=== PATIENT | female | born 1950 | race Caucasian/White ===

== ENCOUNTER 2020-10-29 10:01 | Outpatient (REF) | payer MEDICARE, SELFPAY ==
[2020-10-29 12:01] LABS: Anion Gap 11 (12-20); Blood Urea Nitrogen 21 mg/dL (9-16); C Reactive Protein 0.23 mg/dL (< or = 0.50); Calcium 8.4 mg/dL (8.4-10.2); Carbon Dioxide 31 mmol/L (22-29); Chloride 103 mmol/L (96-108); Estimated Glomerular Filt Rate 57; Glucose Random 76 mg/dL (60-115); Magnesium 1.9 mg/dL (1.6-2.6); Potassium 4.4 mmol/l (3.3-5.1); Sodium 141 mmol/L (135-145)
[2020-10-29 12:24] LABS: Thyroid Stimulating Hormone 0.48 uIU/mL (0.32-4.0)
== END 2020-10-29 10:02 | disposition home or self-care (01) ==
LOC: HO.HMGCLDS 10:01
PROVIDERS: PCP Internal Medicine; Visit Provider Internal Medicine
DX: I12.9 Hypertensive chronic kidney disease with stage 1 through stage 4 chronic kidney disease, or unspecified chronic kidney disease (principal); N18.9 Chronic kidney disease, unspecified; R00.2 Palpitations; E03.9 Hypothyroidism, unspecified; R60.9 Edema, unspecified
CPT/HCPCS: 80048; 83735; 84439; 84443; 86140

== ENCOUNTER → 2020-12-03 12:19 | Outpatient (BNVA) | payer MEDICARE, SELFPAY | PROVIDERS: Visit Provider Internal Medicine Cardiovascular Disease | DX: I49.3 Ventricular premature depolarization (principal); I10 Essential (primary) hypertension | CPT/HCPCS: 93005; 99212 ==

== ENCOUNTER 2021-03-18 09:20 | Outpatient (REF) | payer MEDICARE, SELFPAY ==
--- NOTE | ~2021-03-18 | MM_ITS ---
EXAMINATION: MM SCREENING DIGITAL BREAST TOMOSYNTHESIS, BILATERAL CLINICAL INFORMATION: Screening. Prior history of left stereotactic biopsy with radial sclerosing lesion and intraductal papillomatosis for which open surgical biopsy was performed in 2018. COMPARISON: Mammography: 01/17/2020 and studies dating back to 11/03/2012 TECHNIQUE: Digital breast tomosynthesis is performed in both the craniocaudal and mediolateral oblique views along with computer-aided detection (CAD). Synthesized 2-D images are generated from the tomosynthesis. FINDINGS: There are scattered areas of fibroglandular density (ACR BI-RADS breast composition Category b). There is postsurgical change again seen within the left breast. There is a region of architectural distortion seen about the anterior upper outer aspect of the right breast for which spot compression views and ultrasound is recommended. MM/MM tomosynthesis screening BI IMPRESSION: Region of architectural distortion right breast for further evaluation, as described. ASSESSMENT: BI-RADS 0: Incomplete - Need Additional Imaging Evaluation. RECOMMENDATION: 1. Additional views of the right breast. 2. Targeted ultrasound if warranted after review of the additional views. 3. Radiology department staff will contact the patient for additional imaging.
== END 2021-03-18 09:21 | disposition home or self-care (01) ==
LOC: HO.MAMMO 09:20
PROVIDERS: Visit Provider Internal Medicine
DX: Z12.31 Encounter for screening mammogram for malignant neoplasm of breast (principal)
CPT/HCPCS: 77063; 77067

== ENCOUNTER 2021-03-24 08:38 | Outpatient (REF) | payer MEDICARE, SELFPAY | END 2021-03-24 08:39 | disposition home or self-care (01) | LOC: HO.MAMMO 08:38 | PROVIDERS: Visit Provider Internal Medicine | DX: Z13.89 Encounter for screening for other disorder (principal) ==

== ENCOUNTER 2021-03-30 08:13 | Outpatient (REF) | payer MEDICARE, SELFPAY ==
--- NOTE | ~2021-03-30 | MM_ITS ---
EXAMINATION: MM DIAGNOSTIC DIGITAL BREAST TOMOSYNTHESIS, RIGHT US DIAGNOSTIC ULTRASOUND BREAST, RIGHT CLINICAL INFORMATION: Recall from screening for vague region architectural changes upper outer quadrant right breast. Prior history contralateral left breast radial sclerosing lesion with intraductal papillomatosis on stereotactic biopsy 03/16/2018, and subsequent excisional biopsy 04/16/2018. COMPARISON: Mammography: 03/18/2021, 01/17/2020, 01/12/2019, 01/06/2018, 12/28/2016, 12/26/2015 TECHNIQUE: Digital breast tomosynthesis is performed. 2D images are generated from the tomosynthesis. The following views are obtained: 3-D spot CC, 3-D rolled CC x2, 3-D spot MLO, 3-D spot ML. Ultrasound right breast is targeted to the outer quadrant 7:00 through 12:00 position. Grayscale imaging and color Doppler are performed without and with harmonics. FINDINGS: Mammography: There are scattered areas of fibroglandular density (ACR BI-RADS breast composition Category b). The additional views show subtle regional architectural changes in the upper outer right breast without definite focality. There is no three-dimensional spiculated mass or focal developing density. Smooth nodule is present mid upper outer quadrant under 1 cm. Ultrasound: Ultrasound demonstrates scattered nonfocal shadowing in the outer breast 8:00 through 10:00 position anterior to mid depth. There is no focal three-dimensional shadowing or focal three-dimensional architectural changes. A small complicated cyst likely apocrine metaplasia is present corresponding to the nodule on mammography 11:00 position 3 cm from nipple measuring approximately 6 x 4 mm. There is some geographic internal echogenicity without associated color flow. There is increased through-transmission of sound. Management: Results are discussed with the patient at time of visit. There is no prior history right breast surgery or significant remote trauma right breast. Given the history contralateral radial sclerosing lesion tissue sampling is recommended to provide additional information and confirm benignity. This would be best performed under stereotactic sampling. Patient is in agreement. Results and recommendation called to medical office assistant instructor ([place]) for Dr. Bowens on 03/30/2021. MM/MM tomosynthesis added views R IMPRESSION: Subtle regional architectural changes upper outer right breast without definite focality on additional views. Scattered nonfocal shadowing on targeted ultrasound. ASSESSMENT: BI-RADS 4: Suspicious RECOMMENDATION: Stereotactic biopsy upper outer right breast. This patient's information was entered into a reminder system with a target due date for their next mammogram.
== END 2021-03-30 08:14 | disposition home or self-care (01) ==
LOC: HO.MAMMO 08:13
PROVIDERS: Visit Provider Internal Medicine
DX: R92.8 Other abnormal and inconclusive findings on diagnostic imaging of breast (principal)
CPT/HCPCS: 76642; 77061; 77065

== ENCOUNTER → 2021-04-03 08:14 | Outpatient (BNVA) | payer MEDICARE, SELFPAY | PROVIDERS: PCP Internal Medicine; Referring Provider Internal Medicine; Visit Provider Surgery | DX: R92.8 Other abnormal and inconclusive findings on diagnostic imaging of breast (principal) | CPT/HCPCS: 99202 ==

== ENCOUNTER 2021-04-06 09:40 | Outpatient (REF) | payer MEDICARE, SELFPAY ==
--- NOTE | ~2021-04-06 | MM_ITS ---
EXAMINATION: STEREOTACTIC TOMOSYNTHESIS-GUIDED VACUUM-ASSISTED BREAST BIOPSY, RIGHT SPECIMEN RADIOGRAPH, RIGHT POST PROCEDURE DIGITAL MAMMOGRAM, RIGHT CLINICAL INFORMATION: Subtle regional architectural changes upper outer right breast without definite focality. Scattered nonfocal shadowing on targeted ultrasound. Prior history contralateral eft breast radial sclerosing lesion with intraductal papillomatosis on stereotactic biopsy 03/16/2018, and subsequent excisional biopsy 04/16/2018. COMPARISON: Mammography 01/12/2019, 01/17/2020, 03/18/2021, 03/30/2021, right breast ultrasound 03/30/2021. TECHNIQUE/PROCEDURE: Informed consent was obtained from the patient after discussion of the benefits, risks, and alternatives to biopsy today. Patient appeared to understand. Gave opportunity for questions. Patient signed consent form. BIOPSY TABLE: [facility] Prone Biopsy System. LESION: Subtle regional architectural changes upper outer right breast. LOCAL ANESTHESIA: 10 mL 1% lidocaine; 10 mL 1% lidocaine with epinephrine. DERMATOTOMY: Single skin jcaob dermatotomy performed. NEEDLE: [employer] Eviva 9-gauge vacuum assisted core biopsy device. APPROACH: lateral medial. TARGETING: Digital breast tomosynthesis used for targeting. CORES: 12. CLIP: [employer] Buckle-shaped marker. SPECIMEN RADIOGRAPH: Specimen radiograph is taken in separate room using digital mammography. There are scattered fibroglandular densities in the cores as expected. POST PROCEDURE UNILATERAL DIGITAL MAMMOGRAM: The post biopsy mammogram is performed in separate room using separate digital mammography equipment from the biopsy procedure. CC and ML views are obtained. There are scattered areas of fibroglandular density (breast composition category: b). Breast tissue composition borders on heterogeneously dense in the upper outer quadrant. The biopsy clip marker is deployed in the vicinity of the regional architectural changes. No gross hematoma. The patient tolerated the procedure well. No immediate complications. Home instructions reviewed with the patient. Final pathology results are pending. MM/MM stereotactic biopsy RT IMPRESSION: 1. Digital tomosynthesis-guided core biopsy right breast with clip placement. 2. Specimen radiograph taken and post procedure mammogram. There is satisfactory positioning of the biopsy clip. 3. Final pathology results pending. An addendum report will be issued.
== END 2021-04-06 09:41 | disposition home or self-care (01) ==
LOC: HO.MAMMO 09:40
PROVIDERS: PCP Internal Medicine; Visit Provider Surgery
DX: R92.8 Other abnormal and inconclusive findings on diagnostic imaging of breast (principal)
CPT/HCPCS: 19081; 88305; 88341; 88342; 88360; A4648

== ENCOUNTER → 2021-04-09 11:00 | Outpatient (BNVA) | payer MEDICARE, SELFPAY | PROVIDERS: PCP Internal Medicine; Referring Provider Internal Medicine; Visit Provider Surgery | DX: D05.11 Intraductal carcinoma in situ of right breast (principal) | CPT/HCPCS: 99212 ==

== ENCOUNTER 2021-04-15 13:51 | Outpatient (REF) | payer MEDICARE, SELFPAY ==
--- NOTE | ~2021-04-15 | MR_ITS ---
EXAMINATION: BILATERAL BREAST MRI WITH AND WITHOUT CONTRAST CLINICAL INFORMATION: 70-year-old with new diagnosis of ductal carcinoma in situ right breast COMPARISON: None TECHNIQUE: Localizing images, axial T2 fat-saturated and bilateral axial T1 images were obtained. The patient was apparently an severe arm and shoulder pain and could not tolerate additional imaging at that time. No intravenous contrast was injected. The patient will need to be rescheduled with sedation to complete the examination. This was relayed to SANDIP [place] for Dr. Root by Dr. Alonzo at 11:48 AM on 04/16/2021.
[2021-04-15 14:59] LABS: Blood Urea Nitrogen 14 mg/dL (9-16); Estimated Glomerular Filt Rate 49
== END 2021-04-15 13:52 | disposition home or self-care (01) ==
LOC: HO.MRI 13:51
PROVIDERS: PCP Internal Medicine; Visit Provider Surgery
DX: D05.11 Intraductal carcinoma in situ of right breast (principal)
CPT/HCPCS: 36415; 70544; 77047; 77049; 82565; 84520

== ENCOUNTER → 2021-05-26 10:25 | Outpatient (BNVA) | payer MEDICARE, SELFPAY | PROVIDERS: PCP Internal Medicine; Referring Provider Internal Medicine; Visit Provider Surgery | DX: D05.11 Intraductal carcinoma in situ of right breast (principal) | CPT/HCPCS: 99212 ==

== ENCOUNTER 2021-06-17 06:58 | Outpatient (REF) | payer MEDICARE, SELFPAY ==
[2021-06-17 11:10] LABS: MANUAL DIFF FLAG NO
[2021-06-17 11:22] LABS: Basophils Absolute Auto 0.1 X10*3/uL (0.0-0.2); Basophils Percent Auto 0.9 % (0-2); Eosinophils Absolute Auto 0.3 X10*3/uL (0.0-0.4); Eosinophils Percent Auto 5.7 % (0-4); Hematocrit 40.9 % (37-47); Hemoglobin 13.1 g/dl (12.0-16.0); Imm Gran Abs Auto 0.01 X10*3/uL (0.00-0.03); Imm Gran Pct Auto 0.2 % (0.0-0.4); Lymphocytes Absolute Auto 1.9 X10*3/uL (1.2-4.9); Lymphocytes Percent Auto 35.7 % (20-40); Mean Corpuscular Hemoglobin 32.1 pg (27.0-33.0); Mean Corpuscular Volume 100.2 fL (80-98); Mean Platelet Volume 11.1 fL (9.4-12.3); Monocytes Absolute Auto 0.4 X10*3/uL (0.1-1.2); Neutrophils Absolute Auto 2.7 X10*3/uL (2.0-8.3); Neutrophils Percent Auto 50.5 % (45-73); Platelet Count 264 X10*3/uL (160-400); Red Blood Count 4.08 X10*6/uL (4.20-5.50); White Blood Count 5.4 X10*3/uL (4.8-10.8)
[2021-06-17 11:44] LABS: Alanine Aminotransferase 12 U/L (0-31); Alkaline Phosphatase 56 U/L (39-117); Anion Gap 11 (12-20); Aspartate Amino Transferase 18 U/L (5-31); Bilirubin Total 0.9 mg/dL (0.0-1.0); Blood Urea Nitrogen 15 mg/dL (9-16); Carbon Dioxide 30 mmol/L (22-29); Chloride 104 mmol/L (96-108); Cholesterol 132 mg/dL; Estimated Glomerular Filt Rate 48; Glucose Fasting 81 mg/dL (60-99); HDL Cholesterol 43 mg/dL; LDL Cholesterol Calculated 72 mg/dl; Potassium 4.2 mmol/L (3.3-5.1); Sodium 141 mmol/L (135-145); Total Protein 7.2 g/dL (6.5-8.0); Triglycerides 89 mg/dL
[2021-06-17 11:48] LABS: Thyroid Stimulating Hormone 4.23 uIU/mL (0.32-4.0)
== END 2021-06-17 06:59 | disposition home or self-care (01) ==
LOC: HO.HMGCLDS 06:58
PROVIDERS: PCP Internal Medicine; Visit Provider Internal Medicine
DX: Z01.810 Encounter for preprocedural cardiovascular examination (principal); I10 Essential (primary) hypertension; K21.9 Gastro-esophageal reflux disease without esophagitis; E03.9 Hypothyroidism, unspecified; E78.00 Pure hypercholesterolemia, unspecified; I49.3 Ventricular premature depolarization
CPT/HCPCS: 36415; 80053; 80061; 84439; 84443; 85025; 93005; 99212

== ENCOUNTER → 2021-07-15 12:39 | Outpatient (BNVA) | payer MEDICARE, SELFPAY | PROVIDERS: Visit Provider Advanced Practice Midwife ==

== ENCOUNTER 2021-09-30 14:09 | Outpatient (REF) | payer MEDICARE, SELFPAY ==
[2021-09-30 14:54] LABS: Influenza A PCR NEGATIVE (Negative); Influenza B PCR NEGATIVE (Negative); Resp Syncy Virus RNA Qual PCR NEGATIVE (Negative); SARS COV2 PCR INHOUSE NEGATIVE (Negative)
== END 2021-09-30 14:10 | disposition home or self-care (01) ==
LOC: HO.LNP 14:09
PROVIDERS: Visit Provider Internal Medicine
DX: Z20.822 Contact with and (suspected) exposure to COVID-19 (principal); R50.9 Fever, unspecified
CPT/HCPCS: 0241U

== ENCOUNTER → 2021-10-07 13:51 | Outpatient (BNVA) | payer MEDICARE, SELFPAY | PROVIDERS: PCP Internal Medicine; Visit Provider Internal Medicine Cardiovascular Disease | DX: I49.3 Ventricular premature depolarization (principal); I10 Essential (primary) hypertension; E78.00 Pure hypercholesterolemia, unspecified; E89.0 Postprocedural hypothyroidism; Z87.891 Personal history of nicotine dependence; Z90.13 Acquired absence of bilateral breasts and nipples; Z42.1 Encounter for breast reconstruction following mastectomy; Z88.1 Allergy status to other antibiotic agents; Z88.0 Allergy status to penicillin; Z79.899 Other long term (current) drug therapy | CPT/HCPCS: 99212 ==

== ENCOUNTER 2022-01-05 10:39 | Outpatient (REF) | payer MEDICARE, SELFPAY ==
[2022-01-05 13:59] LABS: MANUAL DIFF FLAG NO
[2022-01-05 14:06] LABS: Basophils Absolute Auto 0.1 X10*3/uL (0.0-0.2); Basophils Percent Auto 0.9 % (0-2); Eosinophils Absolute Auto 0.2 X10*3/uL (0.0-0.4); Eosinophils Percent Auto 3.4 % (0-4); Hematocrit 41.2 % (37.0-47.0); Hemoglobin 13.2 g/dl (12.0-16.0); Imm Gran Abs Auto 0.01 X10*3/uL (0.00-0.03); Imm Gran Pct Auto 0.2 % (0.0-0.4); Lymphocytes Absolute Auto 2.1 X10*3/uL (1.2-4.9); Lymphocytes Percent Auto 38.8 % (20-40); Mean Corpuscular Hemoglobin 31.1 pg (27.0-33.0); Mean Corpuscular Volume 96.9 fL (80.0-98.0); Mean Platelet Volume 11.5 fL (9.4-12.3); Monocytes Absolute Auto 0.5 X10*3/uL (0.1-1.2); Monocytes Percent Auto 10.1 % (2-11); Neutrophils Absolute Auto 2.5 x10*3/uL (2.0-8.3); Neutrophils Percent Auto 46.6 % (45-73); Platelet Count 306 X10*3/uL (160-400); Red Blood Count 4.25 X10*6/uL (4.20-5.50); Red Cell Distribution Width 13.2 % (11.0-16.0); White Blood Count 5.3 X10*3/uL (4.8-10.8)
[2022-01-05 14:23] LABS: Alanine Aminotransferase 9 U/L (0-31); Alkaline Phosphatase 68 U/L (39-117); Anion Gap 10 (12-20); Aspartate Amino Transferase 18 U/L (5-31); Bilirubin Total 0.5 mg/dL (0.0-1.0); Blood Urea Nitrogen 18 mg/dL (9-16); Calcium 9.5 mg/dL (8.4-10.2); Carbon Dioxide 33 mmol/L (22-29); Chloride 101 mmol/L (96-108); Estimated Glomerular Filt Rate 49; Glucose Random 67 mg/dL (60-115); Potassium 4.5 mmol/L (3.3-5.1); Sodium 139 mmol/L (135-145); Total Protein 7.5 g/dL (6.5-8.0)
[2022-01-05 14:45] LABS: Free T4 (Free Thyroxine) 1.23 ng/dL (0.71-1.85); Thyroid Stimulating Hormone 0.18 uIU/mL (0.32-4.0)
== END 2022-01-05 10:40 | disposition home or self-care (01) ==
LOC: HO.HMGCLDS 10:39
PROVIDERS: PCP Internal Medicine; Visit Provider Internal Medicine
DX: I12.9 Hypertensive chronic kidney disease with stage 1 through stage 4 chronic kidney disease, or unspecified chronic kidney disease (principal); N18.9 Chronic kidney disease, unspecified; E03.9 Hypothyroidism, unspecified; K21.9 Gastro-esophageal reflux disease without esophagitis
CPT/HCPCS: 36415; 80053; 84439; 84443; 85025

== ENCOUNTER 2022-03-02 15:39 | Outpatient (REF) | payer MEDICARE, SELFPAY ==
[2022-03-02 16:25] LABS: Anion Gap 12 (12-20); Blood Urea Nitrogen 15 mg/dL (9-16); C Reactive Protein 1.29 mg/dL (< or = 0.50); Calcium 9.1 mg/dL (8.4-10.2); Carbon Dioxide 28 mmol/L (22-29); Chloride 105 mmol/L (96-108); Estimated Glomerular Filt Rate 53; Glucose Random 84 mg/dL (60-115); Potassium 4.8 mmol/L (3.3-5.1); Sodium 140 mmol/L (135-145); Uric Acid 4.4 mg/dL (2.4-5.7)
[2022-03-02 16:43] LABS: Erythrocyte Sedimentation Rate 19 MM/HR (0-20)
== END 2022-03-02 15:40 | disposition home or self-care (01) ==
LOC: HO.LAB 15:39
PROVIDERS: PCP Internal Medicine; Visit Provider Internal Medicine
DX: M25.532 Pain in left wrist (principal)
CPT/HCPCS: 36415; 80048; 84550; 85652; 86140

== ENCOUNTER 2022-07-22 12:02 | Outpatient (REF) | payer MEDICARE, SELFPAY ==
[2022-07-22 13:49] LABS: MANUAL DIFF FLAG NO
[2022-07-22 13:53] LABS: Basophils Absolute Auto 0.1 X10*3/uL (0.0-0.2); Basophils Percent Auto 1.2 % (0-2); Eosinophils Absolute Auto 0.2 X10*3/uL (0.0-0.4); Eosinophils Percent Auto 3.9 % (0-4); Hematocrit 41.3 % (37.0-47.0); Hemoglobin 13.7 g/dl (12.0-16.0); Imm Gran Abs Auto 0.01 X10*3/uL (0.00-0.03); Imm Gran Pct Auto 0.2 % (0.0-0.4); Lymphocytes Absolute Auto 2.1 X10*3/uL (1.2-4.9); Lymphocytes Percent Auto 34.2 % (20-40); Mean Corpuscular HGB Conc 33.2 g/dl (31.0-35.0); Mean Corpuscular Hemoglobin 32.4 pg (27.0-33.0); Mean Corpuscular Volume 97.6 fL (80.0-98.0); Mean Platelet Volume 10.8 fL (9.4-12.3); Monocytes Absolute Auto 0.5 X10*3/uL (0.1-1.2); Monocytes Percent Auto 7.6 % (2-11); Neutrophils Absolute Auto 3.2 x10*3/uL (2.0-8.3); Neutrophils Percent Auto 52.9 % (45-73); Platelet Count 333 X10*3/uL (160-400); Red Blood Count 4.23 X10*6/uL (4.20-5.50); Red Cell Distribution Width 12.9 % (11.0-16.0); White Blood Count 6.1 X10*3/uL (4.8-10.8)
[2022-07-22 14:15] LABS: Anion Gap 13 (12-20); Blood Urea Nitrogen 13 mg/dL (9-16); Calcium 9.1 mg/dL (8.4-10.2); Carbon Dioxide 31 mmol/L (22-29); Chloride 99 mmol/L (96-108); Estimated Glomerular Filt Rate 53; Glucose Random 85 mg/dL (60-115); Potassium 4.4 mmol/L (3.3-5.1); Sodium 139 mmol/L (135-145)
[2022-07-22 14:41] LABS: Free T4 (Free Thyroxine) 1.38 ng/dL (0.71-1.85); Thyroid Stimulating Hormone 0.15 uIU/mL (0.32-4.0)
== END 2022-07-22 12:03 | disposition home or self-care (01) ==
LOC: HO.10HDL 12:02
PROVIDERS: Visit Provider Internal Medicine
DX: I10 Essential (primary) hypertension (principal); E03.9 Hypothyroidism, unspecified
CPT/HCPCS: 36415; 80048; 84439; 84443; 85025

== ENCOUNTER → 2022-10-13 13:26 | Outpatient (BNVA) | payer MEDICARE, SELFPAY | PROVIDERS: PCP Internal Medicine; Referring Provider Internal Medicine; Visit Provider Internal Medicine Cardiovascular Disease | DX: I49.3 Ventricular premature depolarization (principal); I10 Essential (primary) hypertension; K21.9 Gastro-esophageal reflux disease without esophagitis | CPT/HCPCS: 93005; 99212 ==

== ENCOUNTER 2022-12-24 08:19 | Outpatient (REF) | payer MEDICARE, SELFPAY ==
[2022-12-24 11:12] LABS: MANUAL DIFF FLAG NO
[2022-12-24 11:28] LABS: Basophils Absolute Auto 0.1 X10*3/uL (0.0-0.2); Basophils Percent Auto 0.9 % (0-2); Eosinophils Absolute Auto 0.3 X10*3/uL (0.0-0.4); Eosinophils Percent Auto 5.2 % (0-4); Hematocrit 42.5 % (37.0-47.0); Hemoglobin 13.7 g/dl (12.0-16.0); Imm Gran Abs Auto 0.01 X10*3/uL (0.00-0.03); Imm Gran Pct Auto 0.2 % (0.0-0.4); Lymphocytes Absolute Auto 1.9 X10*3/uL (1.2-4.9); Lymphocytes Percent Auto 33.3 % (20-40); Mean Corpuscular HGB Conc 32.2 g/dl (31.0-35.0); Mean Corpuscular Hemoglobin 31.4 pg (27.0-33.0); Mean Corpuscular Volume 97.3 fL (80.0-98.0); Mean Platelet Volume 10.8 fL (9.4-12.3); Monocytes Absolute Auto 0.4 X10*3/uL (0.1-1.2); Monocytes Percent Auto 6.6 % (2-11); Neutrophils Percent Auto 53.8 % (45-73); Platelet Count 327 X10*3/uL (160-400); Red Blood Count 4.37 X10*6/uL (4.20-5.50); Red Cell Distribution Width 12.8 % (11.0-16.0); White Blood Count 5.6 X10*3/uL (4.8-10.8)
[2022-12-24 11:54] LABS: Alanine Aminotransferase 14 U/L (0-31); Albumin Level 4.1 g/dL (3.5-5.0); Alkaline Phosphatase 49 U/L (39-117); Anion Gap 13 (12-20); Aspartate Amino Transferase 21 U/L (5-31); Blood Urea Nitrogen 16 mg/dL (9-16); Calcium 9.4 mg/dL (8.4-10.2); Carbon Dioxide 31 mmol/L (22-29); Chloride 100 mmol/L (96-108); Estimated Glomerular Filt Rate 49; Glucose Fasting 86 mg/dL (60-99); Potassium 3.9 mmol/L (3.3-5.1); Sodium 140 mmol/L (135-145); Total Protein 7.3 g/dL (6.5-8.0)
[2022-12-24 12:14] LABS: Free T4 (Free Thyroxine) 1.13 ng/dL (0.71-1.85); Thyroid Stimulating Hormone 0.64 uIU/mL (0.32-4.0)
== END 2022-12-24 08:20 | disposition home or self-care (01) ==
LOC: HO.HMGCLDS 08:19
PROVIDERS: Visit Provider Internal Medicine
DX: I10 Essential (primary) hypertension (principal); E03.9 Hypothyroidism, unspecified; E78.00 Pure hypercholesterolemia, unspecified
CPT/HCPCS: 36415; 80053; 84439; 84443; 85025

== ENCOUNTER 2023-01-14 10:30 | Outpatient (REF) | payer MEDICARE, SELFPAY ==
[2023-01-14 13:23] LABS: Appearance Urine Clear; Color Urine Yellow; Glucose Urine UA Negative (Negative); Leukocyte Esterase Urine Large (3+) (Negative); Nitrite Urine Negative (Negative); Specific Gravity - Urine 1.015 (1.005-1.025); UMIC TRIGGER UACC YES; Urine Blood Small (1+) (Negative); Urine Ketones Negative (Negative); Urine Protein Trace mg/dL (Neg-Trace)
[2023-01-14 13:33] LABS: Bacteria Urine 4+ (None Seen); Hyaline Casts Urine 0-2 /LPF (0-2); RBC Urine 0-2 /HPF (0-2); Squamous Epithelial Cell Urine 0-2 /HPF (0-2); UACC Culture Trigger YES; WBC Urine >50 /HPF (0-5)
== END 2023-01-14 10:31 | disposition home or self-care (01) ==
LOC: HO.10HDL 10:30
PROVIDERS: Visit Provider Internal Medicine
DX: R30.0 Dysuria (principal)
CPT/HCPCS: 81001; 87086; 87088; 87186

== ENCOUNTER 2023-04-22 10:09 | Outpatient (REF) | payer MEDICARE, SELFPAY ==
[2023-04-22 11:34] LABS: Anion Gap 14 (12-20); Blood Urea Nitrogen 23 mg/dL (9-16); Calcium 9.8 mg/dL (8.4-10.2); Carbon Dioxide 28 mmol/L (22-29); Chloride 106 mmol/L (96-108); Estimated Glomerular Filt Rate 53; Glucose Random 71 mg/dL (60-115); Potassium 4.6 mmol/L (3.3-5.1); Sodium 143 mmol/L (135-145)
[2023-04-22 11:59] LABS: Free T4 (Free Thyroxine) 1.21 ng/dL (0.71-1.85); Thyroid Stimulating Hormone 0.62 uIU/mL (0.32-4.0)
== END 2023-04-22 10:10 | disposition home or self-care (01) ==
LOC: HO.10HDL 10:09
PROVIDERS: Visit Provider Internal Medicine
DX: I12.9 Hypertensive chronic kidney disease with stage 1 through stage 4 chronic kidney disease, or unspecified chronic kidney disease (principal); N18.9 Chronic kidney disease, unspecified; E03.9 Hypothyroidism, unspecified
CPT/HCPCS: 36415; 80048; 84439; 84443

== ENCOUNTER 2023-07-21 09:47 | Outpatient (REF) | payer MEDICARE, SELFPAY ==
--- NOTE | ~2023-07-21 | XR_ITS ---
EXAMINATION: XR KNEE, LEFT CLINICAL INFORMATION: Pain. COMPARISON: None available. TECHNIQUE: AP, lateral, tunnel, and sunrise views of the left knee. FINDINGS: Bony mineralization is normal. There is moderate asymmetric narrowing of the lateral joint space compartment. The medial and patellofemoral joint space compartments are well-maintained. There is no significant varus or valgus configuration. There is no fracture, dislocation or significant joint effusion. No foreign body is seen. XR/XR knee LT 4V IMPRESSION: 1. 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 2. No fracture, dislocation or joint effusion is seen.
== END 2023-07-21 09:48 | disposition home or self-care (01) ==
LOC: HO.XRAY 09:47
PROVIDERS: PCP Internal Medicine; Visit Provider Internal Medicine
DX: M25.562 Pain in left knee (principal)
CPT/HCPCS: 73564

== ENCOUNTER 2023-08-09 07:33 | Outpatient (REF) | payer MEDICARE, SELFPAY ==
[2023-08-09 11:28] LABS: MANUAL DIFF FLAG NO
[2023-08-09 11:54] LABS: Basophils Absolute Auto 0.1 X10*3/uL (0.0-0.2); Basophils Percent Auto 1.1 % (0-2); Eosinophils Absolute Auto 0.3 X10*3/uL (0.0-0.4); Eosinophils Percent Auto 5.1 % (0-4); Hematocrit 42.7 % (37.0-47.0); Hemoglobin 13.9 g/dl (12.0-16.0); Imm Gran Abs Auto 0.01 X10*3/uL (0.00-0.03); Imm Gran Pct Auto 0.2 % (0.0-0.4); Lymphocytes Absolute Auto 1.6 X10*3/uL (1.2-4.9); Lymphocytes Percent Auto 29.2 % (20-40); Mean Corpuscular HGB Conc 32.6 g/dl (31.0-35.0); Mean Corpuscular Hemoglobin 32.3 pg (27.0-33.0); Mean Corpuscular Volume 99.1 fL (80.0-98.0); Mean Platelet Volume 10.9 fL (9.4-12.3); Monocytes Absolute Auto 0.4 X10*3/uL (0.1-1.2); Monocytes Percent Auto 6.7 % (2-11); Neutrophils Absolute Auto 3.1 x10*3/uL (2.0-8.3); Neutrophils Percent Auto 57.7 % (45-73); Platelet Count 333 X10*3/uL (160-400); Red Blood Count 4.31 X10*6/uL (4.20-5.50); Red Cell Distribution Width 12.7 % (11.0-16.0); White Blood Count 5.3 X10*3/uL (4.8-10.8)
[2023-08-09 12:16] LABS: Alanine Aminotransferase 10 U/L (0-31); Albumin Level 4.1 g/dL (3.5-5.0); Alkaline Phosphatase 53 U/L (39-117); Anion Gap 11 (12-20); Aspartate Amino Transferase 18 U/L (5-31); Bilirubin Total 0.6 mg/dL (0.0-1.0); Blood Urea Nitrogen 14 mg/dL (9-16); Calcium 9.2 mg/dL (8.4-10.2); Carbon Dioxide 30 mmol/L (22-29); Chloride 104 mmol/L (96-108); Cholesterol 153 mg/dL (<200); Estimated Glomerular Filt Rate 50; Glucose Fasting 86 mg/dL (60-99); HDL Cholesterol 43 mg/dL (>40); LDL Cholesterol Calculated 79 mg/dL (<100); Sodium 141 mmol/L (135-145); Total Protein 7.6 g/dL (6.5-8.0); Triglycerides 155 mg/dL (<150)
[2023-08-09 12:17] LABS: Free T4 (Free Thyroxine) 1.05 ng/dL (0.71-1.85); Thyroid Stimulating Hormone 3.05 uIU/mL (0.32-4.0)
== END 2023-08-09 07:34 | disposition home or self-care (01) ==
LOC: HO.HMGCLDS 07:33
PROVIDERS: PCP Internal Medicine; Visit Provider Internal Medicine
DX: I10 Essential (primary) hypertension (principal); E78.00 Pure hypercholesterolemia, unspecified; K21.9 Gastro-esophageal reflux disease without esophagitis; E03.9 Hypothyroidism, unspecified
CPT/HCPCS: 36415; 80053; 80061; 84439; 84443; 85025

== ENCOUNTER 2023-12-22 09:08 | Outpatient (AMB) | payer MEDICARE, SELFPAY ==
[2023-12-22 09:30] VITALS: BP 130/72; PULSE 53; BMI 30.3
--- NOTE | 2023-12-22 09:30 | MHC.OFFVIS ---
Intake Vital Signs 12/22/23 09:30 Height 5 ft 7 in Weight 193 lb 9.054 oz BMI 30.3 BP 130/72 Blood Pressure Location Lt brachial Position Sitting Pulse 53 Pulse Source Monitor Intake Visit Reasons: 1 year fu (KM) Allergies amoxicillin [AMOXICILLIN] Allergy (Unknown, Verified 12/22/23 09:32) ITCHING,RASH, rash, itching Medication List - Last Reconciled 12/22/23 by Sintia Tsang, HAND OUTSIDE CUTTER-C anastrozole 1 mg PO DAILY levothyroxine 125 mcg PO DAILY lisinopril 20 mg PO DAILY omeprazole 20 mg PO DAILY simvastatin 20 mg PO DAILY HPI 1 year fu (KM) HPI Details Kandis is a 73-year-old female past medical history of hypertension, hyperlipidemia, breast CA, heart palpitations, PVCs who presents for follow-up. Today she reports that overall she is been feeling well. She will feel an occasional blip in her chest. She has had no sustained, rapid or irregular heart rates. No presyncope, syncope, falls. No chest discomfort at rest or with activity. No shortness of breath, PND, orthopnea or edema. She reports routine walking for physical activity. Taking meds as directed. [facility] Medical History DCIS (ductal carcinoma in situ) Osteopenia Bronchitis GERD (gastroesophageal reflux disease) Thyroid cancer Hypercholesterolemia Hypertension PVC (premature ventricular contraction) Surgical History History of mastectomy H/O total thyroidectomy History of removal of cyst History of lumpectomy History of tonsillectomy History of cholecystectomy Family History Maternal Grandfather CVD (cardiovascular disease) Father Cancer Mother Cancer Parkinson disease Maternal Grandmother Gallbladder cancer Social History Alcohol intake: current Alcohol intake frequency: holidays/special occasions only Patient Tobacco Use Status: Former Tobacco user Quit Date: 2002 Years Smoked: 15+ Female Reproductive History Menstrual Age of Menarche: 13 Review of Systems Const All systems reviewed & are unremarkable except as noted in HPI and below ENT Denies dizziness Card Denies chest pain, Denies chest pain at rest, Denies chest pain with activity, Denies rapid heart rate, Denies pedal edema, Denies edema, Denies leg edema, Denies lightheadedness, Denies palpitations, Denies dyspnea, Denies dyspnea on exertion and Denies orthopnea Resp Denies cough, Denies dyspnea and Denies dyspnea on exertion GI Denies hematochezia and Denies change in stool character Musc Denies abnormal gait, Denies limited range of motion, Denies muscle cramps, Denies muscle weakness, Denies numbness, Denies radiating pain into limb, Denies stiffness and Denies tingling Neuro Denies abnormal gait, Denies dizziness, Denies numbness and Denies tingling Endo Denies palpitations Physical Exam Vital Signs: Last Vital Signs Pulse 53 12/22/23 09:30 BP 130/72 12/22/23 09:30 BMI result Body Mass Index 30.3 Const General: cooperative, healthy appearing, comfortable and no acute distress Orientation/consciousness: patient oriented x3 Neck Neck: Yes normal visual inspection and Yes no JVD Resp Effort & Inspection: normal respiratory effort Auscultation: clear to auscultation bilaterally, no crackles, no rales, no rhonchi and no wheezes Cardio Jugular venous distension: no JVD Rate: regular rate Rhythm: regular rhythm Heart sounds: S1 normal heart sound present, S2 normal heart sound present, no murmurs and no rubs Neuro General: patient oriented x3 Extrem General: Yes normal to inspection, No no pedal edema and No calf tenderness Psych Appearance: grossly normal Mental Status: mental status grossly normal Speech and movement: Normal speech and movement present Office Procedures EKG Details: Today, read by me, sinus bradycardia, rate 53, no acute ST or T-wave abnormalities, QTC 399 millisecond [id number], Complete Assessment & Plan Assessment & Plan (1) Palpitation: Code(s): R00.2 - Palpitations Plan: History of heart palpitations. Prior cardiac evaluation showed frequent PVCs which were managed conservatively. Echocardiogram done 05/13/2020 showed EF 60-65%, normal valves. Holter monitor done in 2019 showed frequent ventricular bigeminy. She reduced her caffeinated beverages, decreasing stress levels and walks routinely for exercise. At this point she generally feels well with only occasional brief palpitation. She has no lightheadedness, presyncope, syncope. EKG done today showing sinus bradycardia, no acute ST or T-wave abnormalities, no ectopy, rate 53. Recent labs reviewed, no anemia, normal potassium and TSH. She is not on any rate slowing agents. Her blood pressure is controlled. In the absence concerning symptoms no need for further testing at present. Emergency care if ever needed for symptoms. Cardiology follow-up in 1 year, sooner if needed. (2) PVC (premature ventricular contraction): Code(s): I49.3 - Ventricular premature depolarization Plan: As above (3) Hypertension: Code(s): I10 - Essential (primary) hypertension Qualifiers: Hypertension type: primary hypertension Qualified Code(s): I10 - Essential (primary) hypertension Plan: [place] blood pressure goal less than 130/85. Currently well controlled with lisinopril. Labs done 08/09/2023 shows creatinine 1.07. Continue lisinopril at 20 mg daily. Plan Time spent on chart review, documentation, interview and assessment Coding Level of Care Code Est Pt Level 3 (84211) Diagnoses Palpitation R00.2 PVC (premature ventricular contraction) I49.3 Primary hypertension I10 Hypertension type: primary hypertension CPT Codes EKG - CPT: 22844-[id number], Complete ([id number]) Time Spent (min) 22
== END 2023-12-22 10:07 | disposition home or self-care (01) ==
PROVIDERS: PCP Internal Medicine; Visit Provider Nurse Practitioner Family
DX: R00.2 Palpitations (principal); I49.3 Ventricular premature depolarization; I10 Essential (primary) hypertension
CPT/HCPCS: 93010; 99213

== ENCOUNTER → 2023-12-22 09:08 | Outpatient (BNVA) | payer MEDICARE, SELFPAY | PROVIDERS: PCP Internal Medicine; Visit Provider Nurse Practitioner Family | DX: R00.2 Palpitations (principal); I49.3 Ventricular premature depolarization; I10 Essential (primary) hypertension | CPT/HCPCS: 93005; 99212 ==

== ENCOUNTER 2024-01-20 10:37 | Outpatient (REF) | payer MEDICARE, SELFPAY ==
[2024-01-20 13:18] LABS: MANUAL DIFF FLAG NO
[2024-01-20 13:28] LABS: Basophils Absolute Auto 0.1 X10*3/uL (0.0-0.2); Basophils Percent Auto 0.9 % (0-2); Eosinophils Absolute Auto 0.2 X10*3/uL (0.0-0.4); Eosinophils Percent Auto 3.4 % (0-4); Hematocrit 40.8 % (37.0-47.0); Hemoglobin 13.4 g/dl (12.0-16.0); Imm Gran Abs Auto 0.01 X10*3/uL (0.00-0.03); Imm Gran Pct Auto 0.2 % (0.0-0.4); Lymphocytes Absolute Auto 1.7 X10*3/uL (1.2-4.9); Lymphocytes Percent Auto 30.3 % (20-40); Mean Corpuscular HGB Conc 32.8 g/dl (31.0-35.0); Mean Corpuscular Hemoglobin 31.9 pg (27.0-33.0); Mean Corpuscular Volume 97.1 fL (80.0-98.0); Mean Platelet Volume 10.4 fL (9.4-12.3); Monocytes Absolute Auto 0.5 X10*3/uL (0.1-1.2); Monocytes Percent Auto 8.5 % (2-11); Neutrophils Absolute Auto 3.1 x10*3/uL (2.0-8.3); Neutrophils Percent Auto 56.7 % (45-73); Platelet Count 287 X10*3/uL (160-400); Red Cell Distribution Width 12.6 % (11.0-16.0); White Blood Count 5.5 X10*3/uL (4.8-10.8)
[2024-01-20 14:20] LABS: Alanine Aminotransferase 10 U/L (0-31); Alkaline Phosphatase 50 U/L (39-117); Anion Gap 10 (12-20); Aspartate Amino Transferase 18 U/L (5-31); Bilirubin Total 0.5 mg/dL (0.0-1.0); Blood Urea Nitrogen 19 mg/dL (9-16); Calcium 8.7 mg/dL (8.4-10.2); Carbon Dioxide 30 mmol/L (22-29); Chloride 105 mmol/L (96-108); Estimated Glomerular Filt Rate 52; Free T4 (Free Thyroxine) 1.29 ng/dL (0.71-1.85); Glucose Random 89 mg/dL (60-115); Potassium 4.4 mmol/L (3.3-5.1); Sodium 141 mmol/L (135-145); Thyroid Stimulating Hormone 0.25 uIU/mL (0.32-4.0); Total Protein 7.4 g/dL (6.5-8.0)
== END 2024-01-20 10:38 | disposition home or self-care (01) ==
LOC: HO.10HDL 10:37
PROVIDERS: Visit Provider Internal Medicine
DX: I10 Essential (primary) hypertension (principal); E03.9 Hypothyroidism, unspecified; N18.9 Chronic kidney disease, unspecified; K21.9 Gastro-esophageal reflux disease without esophagitis
CPT/HCPCS: 36415; 80053; 84439; 84443; 85025

== ENCOUNTER 2024-08-14 09:51 | Outpatient (AMB) | payer MEDICARE, MEDICAID, SELFPAY ==
--- NOTE | 2024-08-14 09:53 | A.OFFVIS_ITS ---
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 She is doing well with no concerns. Attempting to eat a healthy diet with calcium and vitamin D and stays active with walking. Currently not sexually active. Denies any vaginal dryness or irritation. Bilateral mastectomy, seeing [facility]. Colonoscopy is 2020. [facility] Medical History (Updated 08/14/24 @ 10:37 by Hamida Head CNM) DCIS (ductal carcinoma in situ) Osteopenia Bronchitis GERD (gastroesophageal reflux disease) Thyroid cancer Hypercholesterolemia Hypertension PVC (premature ventricular contraction) Surgical History (Updated 08/14/24 @ 10:31 by Hamida Head CNM) History of mastectomy H/O total thyroidectomy History of removal of cyst History of lumpectomy History of tonsillectomy History of cholecystectomy Family History Maternal Grandfather CVD (cardiovascular disease) Father Cancer Mother Cancer Parkinson disease Maternal Grandmother Gallbladder cancer Social History Alcohol intake: current Alcohol intake frequency: holidays/special occasions only Patient Tobacco Use Status: Former Tobacco user Years Smoked: 15+ Female Reproductive History Menstrual Age of Menarche: 13 Total pregnancies: 3 Full term: 2 Number of Living Children: 2 Ab spontaneous: 1 Date of Mammogram: 03/30/21 (Birad 4) History of abnormal mammogram: Yes (bx ductal carcinoma in situ) Review of Systems Const All systems reviewed & are unremarkable except as noted in HPI and below Reports as per HPI Eyes Reports no additional complaints ENT Reports no additional complaints Card Reports no additional complaints Resp Reports no additional complaints GI Reports as per HPI and Reports no additional complaints Reports as per HPI Musc Reports no additional complaints Skin/Breast Reports as per HPI Neuro Reports no additional complaints Psych Reports no additional complaints Endo Reports no additional complaints Bib/Lymph Reports no additional complaints Aller/Immun Reports no additional complaints Physical Exam Vital Signs: Last Vital Signs BP 120/82 08/14/24 09:55 BMI result Body Mass Index 29.9 Const General: cooperative, healthy appearing, no acute distress, well developed and alert Orientation/consciousness: patient oriented x3 HEENT Head: Yes normal to inspection Eyes General: appearance normal, both eyes and all related structures Neck Neck: Yes normal visual inspection Thyroid: Thyroid normal Chest Other: Reconstructive breast scarring with expanders bilaterally Chest palpation & inspection: normal inspection of the chest and other (no puckering, dimpling, peau de orange, retraction, discharge, masses) Breast/axilla inspection: normal inspection of the breasts Breast/axilla palpation: normal palpation of the breasts Resp Effort & Inspection: normal respiratory effort GI Inspection: Yes normal to inspection Palpation (GI): Soft to palpation Rectal Exam - Female: deferred General: Yes bladder normal to palpation External Female Exam: normal external appearance and normal appearance of the urethra Speculum Exam - Vagina: normal appearance of the vagina, normal palpation, normal vaginal discharge and vagina atrophic Speculum Exam - Cervix: normal appearance of the cervix and normal palpation Bimanual exam- vagina & uterus: normal bimanual exam, normal palpation, uterine size normal, bladder normal to palpation, normal palpation and non-tender Bimanual Exam- Adnexa, other: no masses Skin General skin exam: no rashes or lesions noted Rashes: no rashes Neuro General: patient oriented x3 Cognition (Neuro): normal cognition Extrem General: Yes normal to inspection Psych Attitude: cooperative Thought process: Normal thought process present Assessment & Plan Assessment & Plan (1) Encounter for well woman exam with routine gynecological exam: Code(s): Z01.419 - Encounter for gynecological examination (general) (routine) without abnormal findings Category: Medical Plan Discussed: Current recommendations for pap smears per ASCCP guidelines. Breast awareness, periodic self breast exams and yearly mammogram. Maintain a healthy lifestyle, well balanced diet including Calcium 1,200 mg and Vitamin D 800 IU daily, and routine exercise. Contact the office with any postmenopausal bleeding. Patient verbalizes understanding and agrees to the plan of care. She was given opportunity to ask questions and all questions were answered to the best of my ability. Return to the office 1-2 year. This note is constructed using voice recognition software. While every effort has been made to ensure accuracy, continuous miner operator errors may have been included. RTO in 1 year for annual library consultant exam. Coding Level of Care Code Est Pt Prev Care >65y(98920) Diagnoses Encounter for well woman exam with routine gynecological exam Z01.419
[2024-08-14 09:55] VITALS: BP 120/82; BMI 29.9
== END 2024-08-14 10:53 | disposition home or self-care (01) ==
PROVIDERS: PCP Internal Medicine; Visit Provider Advanced Practice Midwife
DX: Z01.419 Encounter for gynecological examination (general) (routine) without abnormal findings (principal)
CPT/HCPCS: 99397

== ENCOUNTER → 2024-08-14 09:51 | Outpatient (BNVA) | payer MEDICARE, SELFPAY | PROVIDERS: PCP Internal Medicine; Visit Provider Advanced Practice Midwife ==

== ENCOUNTER 2024-10-09 10:00 | Outpatient (RCR) | payer MEDICARE, OTHER, SELFPAY | END 2024-10-17 08:28 | disposition home or self-care (01) | LOC: HO.PTCHIC 10:00 | PROVIDERS: PCP Internal Medicine; Visit Provider Internal Medicine | DX: M17.0 Bilateral primary osteoarthritis of knee (principal) | CPT/HCPCS: 97110; 97140; 97161 ==

== ENCOUNTER 2024-10-23 07:29 | Outpatient (REF) | payer MEDICARE, MEDICAID, SELFPAY ==
[2024-10-23 09:58] LABS: MANUAL DIFF FLAG NO
[2024-10-23 10:07] LABS: Basophils Absolute Auto 0.1 X10*3/uL (0.0-0.2); Basophils Percent Auto 1.3 % (0-2); Eosinophils Absolute Auto 0.2 X10*3/uL (0.0-0.4); Eosinophils Percent Auto 4.1 % (0-4); Hematocrit 41.3 % (37.0-47.0); Hemoglobin 13.5 g/dl (12.0-16.0); Imm Gran Abs Auto 0.01 X10*3/uL (0.00-0.03); Imm Gran Pct Auto 0.2 % (0.0-0.4); Lymphocytes Absolute Auto 1.6 X10*3/uL (1.2-4.9); Mean Corpuscular HGB Conc 32.7 g/dl (31.0-35.0); Mean Corpuscular Hemoglobin 32.2 pg (27.0-33.0); Mean Corpuscular Volume 98.6 fL (80.0-98.0); Mean Platelet Volume 10.9 fL (9.4-12.3); Monocytes Absolute Auto 0.4 X10*3/uL (0.1-1.2); Monocytes Percent Auto 7.7 % (2-11); Neutrophils Absolute Auto 2.5 x10*3/uL (2.0-8.3); Neutrophils Percent Auto 52.7 % (45-73); Platelet Count 297 X10*3/uL (160-400); Red Blood Count 4.19 X10*6/uL (4.20-5.50); Red Cell Distribution Width 12.8 % (11.0-16.0); White Blood Count 4.7 X10*3/uL (4.8-10.8)
[2024-10-23 10:26] LABS: Alanine Aminotransferase 18 U/L (0-31); Albumin Level 4.1 g/dL (3.5-5.0); Alkaline Phosphatase 48 U/L (39-117); Anion Gap 12 (12-20); Aspartate Amino Transferase 24 U/L (5-31); Bilirubin Total 0.7 mg/dL (0.0-1.0); Blood Urea Nitrogen 17 mg/dL (9-16); Calcium 9.1 mg/dL (8.4-10.2); Carbon Dioxide 30 mmol/L (22-29); Chloride 102 mmol/L (96-108); Cholesterol 142 mg/dL (<200); Estimated Glomerular Filt Rate 56; Glucose Fasting 87 mg/dL (60-99); HDL Cholesterol 43 mg/dL (>40); LDL Cholesterol Calculated 71 mg/dL (<100); Potassium 3.9 mmol/L (3.3-5.1); Sodium 140 mmol/L (135-145); Total Protein 7.4 g/dL (6.5-8.0); Triglycerides 142 mg/dL (<150)
[2024-10-23 10:47] LABS: Free T4 (Free Thyroxine) 1.32 ng/dL (0.71-1.85); Thyroid Stimulating Hormone 0.15 uIU/mL (0.32-4.0); Vitamin D 25-OH Total 103.5 ng/mL (>30)
== END 2024-10-23 07:30 | disposition home or self-care (01) ==
LOC: HO.HMGCLDS 07:29
PROVIDERS: PCP Internal Medicine; Visit Provider Internal Medicine
DX: I10 Essential (primary) hypertension (principal); E03.9 Hypothyroidism, unspecified; N18.9 Chronic kidney disease, unspecified; M81.0 Age-related osteoporosis without current pathological fracture
CPT/HCPCS: 36415; 80053; 80061; 82306; 84439; 84443; 85025

== ENCOUNTER 2025-02-22 09:19 | Outpatient (AMB) | payer MEDICARE, MEDICAID, SELFPAY ==
--- NOTE | 2025-02-22 09:40 | MHC.OFFVIS ---
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 She has background history of asymptomatic premature ventricular complexes. Her workup was normal in the past. She was seen for perioperative cardiovascular risk assessment for breast surgery for cancer. She is now status post bilateral mastectomy and partial reconstruction. She is doing well. She was started on anastrozole but developed blood in her stool and she was taken off of the anastrozole. She is saying she was eventually restarted on it and has been tolerating it well. Her only complaint right now is indigestion. She feels indigestion after eating. She takes omeprazole at bedtime and does not take it before she eats her meals. No palpitations. No chest discomfort shortness of breath. Blood pressure control is good. 02/22/2025: She is here for follow-up. She is saying when she had infection previously she had more palpitations. She was previously noticed to have PVCs. Current EKGs not showing any PVCs. She is saying she has been feeling fine more recently and has not had any symptoms. [facility] History (Updated 08/14/24 @ 10:37 by Hamida Head CNM) DCIS (ductal carcinoma in situ) Osteopenia Bronchitis GERD (gastroesophageal reflux disease) Thyroid cancer Hypercholesterolemia Hypertension PVC (premature ventricular contraction) Surgical History History of mastectomy H/O total thyroidectomy History of removal of cyst History of lumpectomy History of tonsillectomy History of cholecystectomy Family History Maternal Grandfather CVD (cardiovascular disease) Father Cancer Mother Cancer Parkinson disease Maternal Grandmother Gallbladder cancer Social History Alcohol intake: current Alcohol intake frequency: holidays/special occasions only Patient Tobacco Use Status: Former Tobacco user Years Smoked: 15+ Female Reproductive History Menstrual Age of Menarche: 13 Review of Systems Const Denies chills, Denies fatigue, Denies fever(s), Denies frequent falls, Denies weakness, Denies weight gain and Denies weight loss ENT Denies dizziness Card Denies chest pain, Denies leg edema, Denies lightheadedness, Denies palpitations, Denies dyspnea and Denies dyspnea on exertion Resp Denies cough, Denies dyspnea and Denies dyspnea on exertion GI Denies hematochezia Musc Denies abnormal gait, Denies muscle weakness, Denies numbness, Denies radiating pain into limb and Denies tingling Neuro Denies abnormal gait, Denies dizziness, Denies frequent falls, Denies numbness, Denies tingling and Denies weakness Endo Denies fatigue and Denies palpitations Physical Exam Vital Signs: Last Vital Signs Pulse 55 02/22/25 09:41 BP 120/80 02/22/25 09:41 BMI result Body Mass Index 30.8 GENERAL APPEARANCE: in no acute distress, well developed, well nourished. NECK/THYROID: no carotid bruit, no jugular venous distention. SKIN: no suspicious lesions, warm and dry. HEART: no murmurs, rubs, gallops. Bradycardic. LUNGS: clear to auscultation bilaterally. ABDOMEN: normal, bowel sounds present, soft, nontender, nondistended. EXTREMITIES: no edema. PERIPHERAL PULSES: equal. NEUROLOGIC: nonfocal, alert and oriented. Office Procedures EKG Details: Sinus bradycardia 55 beats per minute, normal axis, normal ECG, QTC 415 milliseconds. [id number], Complete Assessment & Plan Assessment & Plan (1) PVC (premature ventricular contraction): Code(s): I49.3 - Ventricular premature depolarization Category: Medical (2) Hypertension: Code(s): I10 - Essential (primary) hypertension Category: Medical Qualifiers: Hypertension type: primary hypertension Qualified Code(s): I10 - Essential (primary) hypertension Plan [age] year female who is here for follow-up. She has background history of premature ventricular complexes. Recent EKGs not showing any PVCs. This was also not noticed on previous visit. She is saying that when she gets sick with any infection she gets more palpitations. This is quite common with any arrhythmia. Previous workup was negative. She is denying any exertional symptoms. Blood pressure is well controlled. I have currently reassured her. She will follow up with us in 1 year. Thank you for allowing me to participate in the care of your patient. Please feel free to contact me if you have any questions. Coding Level of Care Code Est Pt Level 4 (20598) Complex EM visit Add On G2211 Diagnoses PVC (premature ventricular contraction) I49.3 Primary hypertension I10 Hypertension type: primary hypertension CPT Codes EKG - CPT: [id number], Complete ([id number])
[2025-02-22 09:41] VITALS: BP 120/80; PULSE 55; BMI 30.8
== END 2025-02-22 10:12 | disposition home or self-care (01) ==
LOC: HO.HCS 09:20
PROVIDERS: PCP Internal Medicine; Visit Provider Internal Medicine Cardiovascular Disease
DX: I49.3 Ventricular premature depolarization (principal); I10 Essential (primary) hypertension
CPT/HCPCS: 93010; 99214; G2211

== ENCOUNTER → 2025-02-22 09:19 | Outpatient (BNVA) | payer MEDICARE, MEDICAID, SELFPAY | PROVIDERS: PCP Internal Medicine; Visit Provider Internal Medicine Cardiovascular Disease | DX: I49.3 Ventricular premature depolarization (principal); I10 Essential (primary) hypertension; R00.1 Bradycardia, unspecified | CPT/HCPCS: 93005; 99212 ==

== ENCOUNTER 2025-03-14 10:48 | Outpatient (AMB) | payer MEDICARE, MEDICAID, SELFPAY ==
[2025-03-14 10:55] VITALS: BP 120/74; PULSE 61; TEMP 36.3; O2SAT 97; BMI 29.9
--- NOTE | 2025-03-14 10:55 | A.OFFPC_ITS ---
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 Accompanied by: Self / Same As Patient Allergies amoxicillin [AMOXICILLIN] Allergy (Unknown, Verified 03/14/25 10:56) ITCHING,RASH, rash, itching Tobacco use date assessed: 03/14/25 Fall risk assessment: No Falls in past year Last assessed Fall Risk: 03/14/25 Dental Screening Dental Screen Date: 03/14/25 Did you have a dental visit in the last 12 months?: Yes Did you have a dental problem in the last 6 months where you did not have access to dental care?: No HPI HPI Comments History of Present Illness Details 74-year-old female with a past medical h istory of htn, hld, pvcs, GERD, hypothyroid, OA, osteopenia, CKD, breast cancer s/p b/l mastectomy presenting f or follow up. Last seen by pcp in Oct. CV: On simvastatin, lisinopril. Following with cardiology. Hypothyroid: On levothyroxine. Last TSH suppressed. History of thyroid surgery History of breast cancer. Goes every 6 months to the breast ctr [facility]. 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 Colonoscopy 2020- year repeat ROS CONSTITUTIONAL: Denies weight loss, fever and chills. HEENT: Denies changes in vision and hearing. RESPIRATORY: Denies SOB and cough. CV: Denies palpitations and CP GI: Denies abdominal pain, nausea, vomiting and diarrhea. : Denies dysuria and urinary frequency. MSK: Denies new myalgia and joint pain. SKIN: Denies rash and pruritus. NEUROLOGICAL: Denies headache PSYCHIATRIC: Denies recent changes in mood. PHYSICAL EXAM: GENERAL: Alert and oriented x 3. NAD EYES: EOMI. Anicteric. HENT: Moist mucous membranes. No scleral icterus. No cervical lymphadenopathy. LUNGS: Clear to auscultation bilaterally. CARDIOVASCULAR: Regular rate and rhythm. No murmur. No JVD. ABDOMEN: Soft, non-tender +bs EXTREMITIES: No edema. Non-tender. SKIN: No rashes or lesions. Warm. NEUROLOGIC: No focal neurological deficits. CN II-XII grossly intact PSYCHIATRIC: Cooperative. Appropriate mood and affect [facility] Medical History DCIS (ductal carcinoma in situ) Osteopenia Bronchitis GERD (gastroesophageal reflux disease) Thyroid cancer Hypercholesterolemia Hypertension PVC (premature ventricular contraction) Surgical History History of mastectomy H/O total thyroidectomy History of removal of cyst History of lumpectomy History of tonsillectomy History of cholecystectomy Family History Maternal Grandfather CVD (cardiovascular disease) Father Cancer Mother Cancer Parkinson disease Maternal Grandmother Gallbladder cancer Social History Housing: House Alcohol intake: current Alcohol intake frequency: holidays/special occasions only Patient Tobacco Use Status: Former Tobacco user Years Smoked: 15+ e-Cigarette/Vaping Use: Never Used service: No Current occupational status: retired Cognitive needs: No Hearing needs: No Vision needs: Yes (rx glasses) Female Reproductive History Menstrual Age of Menarche: 13 Questionnaire PHQ-9 Over the last 2 weeks, how often have you been bothered by any of the following problems? 1. Little interest or pleasure in doing things: not at all 2. Feeling down, depressed, or hopeless: not at all 3. Trouble falling or staying asleep, or sleeping too much: not at all 4. Feeling tired or having little energy: not at all 5. Poor appetite or overeating: not at all 6. Feeling bad about yourself - or that you are a failure or have let yourself or your family down: not at all 7. Trouble concentrating on things, such as reading the newspaper or watching television: not at all 8. Moving or speaking so slowly that other people could have noticed. Or the opposite - being so fidgety or restless that you have been moving around a lot more than usual: not at all 9. Thoughts that you would be better off or of hurting yourself in some way: not at all Total score: 0 Depression Screening Interpretation: Negative Depression Screening Done: Yes 60347 - PHQ-9 Billing: Yes Source: Developed by Drs. Albin Sandra, Chelsea Downey, Mathew Gao and colleagues, with an educational paige from [employer]. Thrive Questionnaire Date Thrive assessed: 03/14/25 I am a: Patient Within the past 12 months, did the food you bought not last and you didn't have the money to get more?: Never true Within the past 12 months, did you worry whether your food would run out before you got money to buy more?: Never true Do you have trouble paying for medicines?: No Do you have trouble getting transportation to medical appointments?: No Do you have trouble paying your heating and electricity bill?: No Do you have trouble taking care of your child, family member or friend?: No Do you have trouble with day-to-day activities such as bathing, preparing meals, shopping, managing finances, etc.?: No Are you currently unemployed and looking for a job?: No Are you interested in more education?: No THRIVE Score: 0 AUDIT C Alcohol Use Questionnaire (AUDIT-C) 1. How often do you have a drink containing alcohol?: Monthly or less 2. How many drinks containing alcohol do you have on a typical day when you are drinking?: 1 or 2 3. How often do you have six or more drinks on one occasion?: Less than monthly Total Score: 2 Physical exam (Primary Care) Vital Signs: Last Vital Signs Temp 97.3 F 03/14/25 10:55 Pulse 61 03/14/25 10:55 BP 120/74 03/14/25 10:55 Pulse Ox 97 03/14/25 10:55 Oxygen Delivery Method Room Air 03/14/25 10:55 BMI result Body Mass Index 29.9 Tobacco/Smoking Status: Tobacco use Status Tobacco use date assessed 03/14/25 03/14/25 10:57 Patient Tobacco Use Status Former Tobacco user 03/14/25 10:57 e-Cigarette/Vaping Use Never Used 03/14/25 10:57 PHQ-9: PHQ-9 Score PHQ-9: Total score 0 03/15/25 10:49 Depression Screening Interpretation: Negative Thrive Assessment: Date of Thrive Assessment Date Thrive assessed 04/17/25 04/17/25 10:57 Coding Level of Care Code New Pt Level 4 (44571) Complex EM visit Add On G2211 Diagnoses Hypothyroidism, unspecified type E03.9 Hypothyroidism type: unspecified Hypercholesterolemia E78.00 Gastroesophageal reflux disease, unspecified whether esophagitis present K21.9 Esophagitis presence: esophagitis presence not specified 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 D05.11 Additional Codes PHQ-9 - 02375 - PHQ-9 Billing: Yes ([id number]) Assessment & Plan Assessment & Plan (1) Hypothyroid: Code(s): E03.9 - Hypothyroidism, unspecified Category: Medical Qualifiers: Hypothyroidism type: unspecified Qualified Code(s): E03.9 - Hypothyroidism, unspecified (2) Hypercholesterolemia: Code(s): E78.00 - Pure hypercholesterolemia, unspecified Category: Medical (3) GERD (gastroesophageal reflux disease): Code(s): K21.9 - Gastro-esophageal reflux disease without esophagitis Category: Medical Qualifiers: Esophagitis presence: esophagitis presence not specified Qualified Code(s): K21.9 - Gastro-esophageal reflux disease without esophagitis (4) 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 Panel 03/14/25 E03.9 - Hypothyroidism, unspecified, E78.00 - Pure hypercholesterolemia, unspecified, I10 - Essential (primary) hypertension, K21.9 - Gastro-esophageal reflux disease without esophagitis TSH reflex Free T4 3 Months E03.9 - Hypothyroidism, unspecified Complete Blood Count Auto Diff 03/14/25 E03.9 - Hypothyroidism, unspecified, E78.00 - Pure hypercholesterolemia, unspecified, I10 - Essential (primary) hypertension, K21.9 - Gastro-esophageal reflux disease without esophagitis Lipid Panel 03/14/25 E03.9 - Hypothyroidism, unspecified, E78.00 - Pure hypercholesterolemia, unspecified, I10 - Essential (primary) hypertension, K21.9 - Gastro-esophageal reflux disease without esophagitis TSH reflex Free T4 03/14/25 E03.9 - Hypothyroidism, unspecified, E78.00 - Pure hypercholesterolemia, unspecified, I10 - Essential (primary) hypertension, K21.9 - Gastro-esophageal reflux disease without esophagitis Medications: New levothyroxine 112 mcg PO DAILY 90 tabs 3RF
== END 2025-03-14 11:53 | disposition home or self-care (01) ==
LOC: HO.HMCHD 10:48
PROVIDERS: PCP Internal Medicine; Visit Provider Internal Medicine
DX: E03.9 Hypothyroidism, unspecified (principal); E78.00 Pure hypercholesterolemia, unspecified; K21.9 Gastro-esophageal reflux disease without esophagitis; D05.11 Intraductal carcinoma in situ of right breast

== ENCOUNTER 2025-03-14 12:05 | Outpatient (REF) | payer MEDICARE, MEDICAID, SELFPAY ==
[2025-03-14 13:18] LABS: MANUAL DIFF FLAG NO
[2025-03-14 13:39] LABS: Basophils Absolute Auto 0.1 X10*3/uL (0.0-0.2); Eosinophils Absolute Auto 0.2 X10*3/uL (0.0-0.4); Eosinophils Percent Auto 3.7 % (0-4); Hematocrit 41.5 % (37.0-47.0); Hemoglobin 13.5 g/dl (12.0-16.0); Imm Gran Abs Auto 0.01 X10*3/uL (0.00-0.03); Imm Gran Pct Auto 0.2 % (0.0-0.4); Lymphocytes Absolute Auto 1.9 X10*3/uL (1.2-4.9); Lymphocytes Percent Auto 36.6 % (20-40); Mean Corpuscular HGB Conc 32.5 g/dl (31.0-35.0); Mean Corpuscular Hemoglobin 31.9 pg (27.0-33.0); Mean Corpuscular Volume 98.1 fL (80.0-98.0); Mean Platelet Volume 10.3 fL (9.4-12.3); Monocytes Absolute Auto 0.4 X10*3/uL (0.1-1.2); Neutrophils Absolute Auto 2.6 x10*3/uL (2.0-8.3); Neutrophils Percent Auto 50.5 % (45-73); Platelet Count 288 X10*3/uL (160-400); Red Blood Count 4.23 X10*6/uL (4.20-5.50); Red Cell Distribution Width 12.7 % (11.0-16.0); White Blood Count 5.1 X10*3/uL (4.8-10.8)
[2025-03-14 14:12] LABS: Alanine Aminotransferase 12 U/L (0-31); Anion Gap 11 (12-20); Aspartate Amino Transferase 23 U/L (5-31); Bilirubin Total 0.5 mg/dL (0.0-1.0); Blood Urea Nitrogen 21 mg/dL (9-16); Calcium 9.1 mg/dL (8.4-10.2); Carbon Dioxide 30 mmol/L (22-29); Chloride 104 mmol/L (96-108); Cholesterol 155 mg/dL (<200); Estimated Glomerular Filt Rate 54; Glucose Random 91 mg/dL (60-115); HDL Cholesterol 43 mg/dL (>40); LDL Cholesterol Calculated 85 mg/dL (<100); Potassium 4.1 mmol/L (3.3-5.1); Sodium 141 mmol/L (135-145); Total Protein 7.4 g/dL (6.5-8.0); Triglycerides 135 mg/dL (<150)
[2025-03-14 14:34] LABS: Alkaline Phosphatase 52 U/L (39-117)
[2025-03-14 14:37] LABS: TSH reflex Free T4 0.07 uIU/mL (0.32-4.0)
[2025-03-14 15:37] LABS: Free T4 (Free Thyroxine) 1.48 ng/dL (0.71-1.85)
== END 2025-03-14 12:06 | disposition home or self-care (01) ==
LOC: HO.10HDL 12:05
PROVIDERS: Visit Provider Internal Medicine
DX: I10 Essential (primary) hypertension (principal); K21.9 Gastro-esophageal reflux disease without esophagitis; I49.3 Ventricular premature depolarization; E03.9 Hypothyroidism, unspecified; E78.00 Pure hypercholesterolemia, unspecified; D05.11 Intraductal carcinoma in situ of right breast
CPT/HCPCS: 36415; 80053; 80061; 84439; 84443; 85025; 96127; 99202

== ENCOUNTER 2025-05-24 10:04 | Outpatient (AMB) | payer MEDICARE, MEDICAID, SELFPAY ==
--- NOTE | 2025-05-24 10:06 | MHC.OFFWIV ---
Intake Vital Signs 05/24/25 10:07 05/24/25 10:54 Height 5 ft 7 in Weight 195 lb 8 oz BMI 30.6 BP 154/82 H 140/80 H Blood Pressure Location Rt brachial Lt brachial Position Sitting Sitting Pulse 64 Pulse Source Pulse Oximeter Temp 98.0 F Temp Source Oral Pulse Oximetry (%) 97 Oxygen Delivery Method Room Air Intake Visit Reasons: EP pain in back of LT leg Intake Note: Patient present with left leg pain posterior times 1 year. 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 - The lump is palpable when standing and is located in the posterior aspect of the left leg. - The patient reports no significant pain unless the lump is palpated. - The patient has a history of osteoarthritis, which may be contributing to the formation of the Owen's cyst. - The patient has been using Fredy sandals, which may have exacerbated the symptoms of osteoarthritis. - The patient has been managing osteoarthritis with Tylenol Arthritis medication, taking two tablets at night and two in the morning. - The patient reports occasional elevated blood pressure readings, with a measurement today of 140/80 mmHg on the left arm. - patient denies any recent travel, sedentary lifestyle, current cancers and she is not a smoker Physical Exam General: Cooperative, healthy appearing, comfortable, no acute distress and well developed Orientation: Patient oriented x3 Limitations: No limitations Head: Normal to inspection Ears: Hearing grossly normal bilaterally Nose: Normal External nose present Face and sinus: Normal facial exam Eyes: Appearance normal, both eyes and all related structures Neck: Normal visual inspection and Yes full ROM Respiratory: Normal respiratory effort and able to speak in complete sentences. Skin: No rashes or lesions noted Neuro: Patient oriented x3, normal gait Extremities: left posterior knee has a 1.5cm oval, palpable, smooth, firm lump, slight TTP, negative Homans' left side, no edema or skin color changes in bilateral LE. [facility] Medical History DCIS (ductal carcinoma in situ) Osteopenia Bronchitis GERD (gastroesophageal reflux disease) Thyroid cancer Hypercholesterolemia Hypertension PVC (premature ventricular contraction) Surgical History History of mastectomy H/O total thyroidectomy History of removal of cyst History of lumpectomy History of tonsillectomy History of cholecystectomy Family History Maternal Grandfather CVD (cardiovascular disease) Father Cancer Mother Cancer Parkinson disease Maternal Grandmother Gallbladder cancer Social History Housing: House Alcohol intake: current Alcohol intake frequency: holidays/special occasions only Patient Tobacco Use Status: Former Tobacco user Years Smoked: 15+ e-Cigarette/Vaping Use: Never Used service: No Current occupational status: retired Cognitive needs: No Hearing needs: No Vision needs: Yes (rx glasses) Female Reproductive History Menstrual Age of Menarche: 13 Review of Systems Const All systems reviewed & are unremarkable except as noted in HPI and below Physical Exam Vital Signs: Last Vital Signs Temp 98.0 F 05/24/25 10:07 Pulse 64 05/24/25 10:07 BP 154/82 H 05/24/25 10:07 Pulse Ox 97 05/24/25 10:07 Oxygen Delivery Method Room Air 05/24/25 10:07 BMI result Body Mass Index 30.6 Assessment & Plan Assessment & Plan (1) Owen's cyst of knee: Code(s): M71.20 - Synovial cyst of popliteal space [Owen], unspecified knee Qualifiers: Laterality: left Qualified Code(s): M71.22 - Synovial cyst of popliteal space [Owen], left knee Plan: - Owen's cyst likely secondary to arthritis, we will treat the arthritis with diclofenac. - low to no suspicion for a blood clot, as no swelling, no skin color changes, no pain in the lower extremities and she has no risk factors. - Prescribe diclofenac for arthritis management, to be taken every 12 hours for the next three to four days, then as needed. - Advise the patient to avoid wearing Fredy sandals and opt for more supportive footwear to alleviate symptoms/arthritis. - Recommend applying ice to the Owen's cyst to reduce inflammation. - Monitor blood pressure at home using a digital blood pressure kit, ensuring the correct cuff size is used. Patient was informed and verbally consented to the use of an ambient scribe for clinic note documentation during this visit. Medications: New diclofenac sodium 50 mg PO Q12H PRN 20 tabs 0RF pain Coding Level of Care Code Est Pt Level 3 (72194) Diagnoses Synovial cyst of left knee M71.22 Laterality: left
[2025-05-24 10:07] VITALS: BP 154/82; PULSE 64; TEMP 36.7; O2SAT 97; BMI 30.6
[2025-05-24 10:54] VITALS: BP 140/80
== END 2025-05-24 11:19 | disposition home or self-care (01) ==
PROVIDERS: PCP Internal Medicine; Visit Provider Physician Assistant
DX: M71.22 Synovial cyst of popliteal space [Baker], left knee (principal)

== ENCOUNTER → 2025-05-24 10:04 | Outpatient (BNVA) | payer MEDICARE, MEDICAID, SELFPAY | PROVIDERS: PCP Internal Medicine; Visit Provider Physician Assistant | DX: M71.22 Synovial cyst of popliteal space [Baker], left knee (principal) | CPT/HCPCS: 99212 ==

== ENCOUNTER 2025-06-03 09:52 | Outpatient (REF) | payer MEDICARE, MEDICAID, SELFPAY ==
[2025-06-03 15:01] LABS: Free T4 (Free Thyroxine) 1.35 ng/dL (0.71-1.85)
== END 2025-06-03 09:53 | disposition home or self-care (01) ==
LOC: HO.HMGCLDS 09:52
PROVIDERS: PCP Internal Medicine; Visit Provider Internal Medicine
DX: E03.9 Hypothyroidism, unspecified (principal)
CPT/HCPCS: 36415; 84439; 84443

== ENCOUNTER 2025-06-13 09:36 | Outpatient (AMB) | payer MEDICARE, MEDICAID, SELFPAY ==
--- NOTE | 2025-06-13 09:44 | A.OFFPC_ITS ---
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 CV: On simvastatin, lisinopril. Following with cardiology. Hypothyroid: On levothyroxine. Last TSH suppressed, repeat low. Discussed decreasing levothyroxine dose to the [facility] [place] already [place]. She is agreeable.. History of thyroid surgery History of breast cancer. Goes every 6 months to the breast ctr [facility]. 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 Colonoscopy 2020-10 year repeat ROS CONSTITUTIONAL: Denies weight loss, fever and chills. HEENT: Denies changes in vision and hearing. RESPIRATORY: Denies SOB and cough. CV: Denies palpitations and CP GI: Denies abdominal pain, nausea, vomiting and diarrhea. : Denies dysuria and urinary frequency. MSK: Denies new myalgia and joint pain. SKIN: Denies rash and pruritus. NEUROLOGICAL: Denies headache PSYCHIATRIC: Denies recent changes in mood. PHYSICAL EXAM: GENERAL: Alert and oriented x 3. NAD EYES: EOMI. Anicteric. HENT: Moist mucous membranes. No scleral icterus. No cervical lymphadenopathy. LUNGS: Clear to auscultation bilaterally. CARDIOVASCULAR: Regular rate and rhythm. No murmur. No JVD. ABDOMEN: Soft, non-tender +bs EXTREMITIES: No edema. Non-tender. SKIN: No rashes or lesions. Warm. NEUROLOGIC: No focal neurological deficits. CN II-XII grossly intact PSYCHIATRIC: Cooperative. Appropriate mood and affect [facility] Medical History DCIS (ductal carcinoma in situ) Osteopenia Bronchitis GERD (gastroesophageal reflux disease) Thyroid cancer Hypercholesterolemia Hypertension PVC (premature ventricular contraction) Surgical History History of mastectomy H/O total thyroidectomy History of removal of cyst History of lumpectomy History of tonsillectomy History of cholecystectomy Family History Maternal Grandfather CVD (cardiovascular disease) Father Cancer Mother Cancer Parkinson disease Maternal Grandmother Gallbladder cancer Social History Housing: House Alcohol intake: current Alcohol intake frequency: holidays/special occasions only Patient Tobacco Use Status: Former Tobacco user Years Smoked: 15+ e-Cigarette/Vaping Use: Never Used service: No Current occupational status: retired Cognitive needs: No Hearing needs: No Vision needs: Yes (rx glasses) Female Reproductive History Menstrual Age of Menarche: 13 Questionnaire PHQ-9 Over the last 2 weeks, how often have you been bothered by any of the following problems? 1. Little interest or pleasure in doing things: not at all 2. Feeling down, depressed, or hopeless: not at all 3. Trouble falling or staying asleep, or sleeping too much: not at all 4. Feeling tired or having little energy: not at all 5. Poor appetite or overeating: not at all 6. Feeling bad about yourself - or that you are a failure or have let yourself or your family down: not at all 7. Trouble concentrating on things, such as reading the newspaper or watching television: not at all 8. Moving or speaking so slowly that other people could have noticed. Or the opposite - being so fidgety or restless that you have been moving around a lot more than usual: not at all 9. Thoughts that you would be better off or of hurting yourself in some way: not at all Total score: 0 Depression Screening Interpretation: Negative Depression Screening Done: Yes 22715 - PHQ-9 Billing: Yes Source: Developed by Drs. Albin Sandra, Chelsea BMathew Sofia and colleagues, with an educational paige from [employer]. Thrive Questionnaire Date Thrive assessed: 03/14/25 Physical exam (Primary Care) Vital Signs: Last Vital Signs Temp 97.4 F 06/13/25 10:03 Pulse 60 06/13/25 10:03 Resp 16 06/13/25 10:03 BP 130/78 06/13/25 10:03 Pulse Ox 98 06/13/25 10:03 Oxygen Delivery Method Room Air 06/13/25 10:03 BMI result Body Mass Index 25.8 Tobacco/Smoking Status: Tobacco use Status Tobacco use date assessed 03/14/25 06/13/25 09:45 Patient Tobacco Use Status Former Tobacco user 06/13/25 09:45 e-Cigarette/Vaping Use Never Used 06/13/25 09:45 PHQ-9: PHQ-9 Score PHQ-9: Total score 0 06/16/25 21:41 Depression Screening Interpretation: Negative Thrive Assessment: Date of Thrive Assessment Date Thrive assessed 03/14/25 06/13/25 09:45 Coding Level of Care Code Est Pt Level 4 (01922) Diagnoses Primary hypertension I10 Hypertension type: primary hypertension Hypercholesterolemia E78.00 Hypothyroidism, unspecified type E03.9 Hypothyroidism type: unspecified Additional Codes PHQ-9 - 08848 - PHQ-9 Billing: Yes ([id number]) Assessment & Plan Assessment & Plan (1) Hypertension: Code(s): I10 - Essential (primary) hypertension Category: Medical Qualifiers: Hypertension type: primary hypertension Qualified Code(s): I10 - Essential (primary) hypertension (2) Hypercholesterolemia: Code(s): E78.00 - Pure hypercholesterolemia, unspecified Category: Medical (3) Hypothyroid: Code(s): E03.9 - Hypothyroidism, unspecified Category: Medical Qualifiers: Hypothyroidism type: unspecified Qualified Code(s): E03.9 - Hypothyroidism, unspecified Plan Hypothyroid-agreeable to lowering dose to 88mcg daily. Recheck by 3 months. htn-controlled Orders: Orders US venous duplex LE LT 06/13/25 M79.662 - Pain in left lower leg TSH reflex Free T4 3 Months E03.9 - Hypothyroidism, unspecified Referrals Orthopedics Referral M79.605 - Pain in left leg
[2025-06-13 10:03] VITALS: BP 130/78; PULSE 60; RESP 16; TEMP 36.3; O2SAT 98; BMI 25.8
== END 2025-06-13 10:28 | disposition home or self-care (01) ==
LOC: HO.HMCHD 09:37
PROVIDERS: PCP Internal Medicine; Visit Provider Internal Medicine
DX: I10 Essential (primary) hypertension (principal); E78.00 Pure hypercholesterolemia, unspecified; E03.9 Hypothyroidism, unspecified

== ENCOUNTER → 2025-06-13 09:36 | Outpatient (BNVA) | payer MEDICARE, MEDICAID, SELFPAY | PROVIDERS: PCP Internal Medicine; Visit Provider Internal Medicine | DX: I10 Essential (primary) hypertension (principal); E78.00 Pure hypercholesterolemia, unspecified; E03.9 Hypothyroidism, unspecified; Z85.3 Personal history of malignant neoplasm of breast; Z79.899 Other long term (current) drug therapy; Z13.31 Encounter for screening for depression | CPT/HCPCS: 96127; 99212 ==

== ENCOUNTER 2025-06-24 08:59 | Outpatient (REF) | payer MEDICARE, MEDICAID, SELFPAY ==
--- NOTE | ~2025-06-24 | XR_ITS ---
EXAMINATION: XR KNEE, LEFT CLINICAL INFORMATION: M25.562 - Pain in left knee COMPARISON: July 21, 2023. TECHNIQUE: AP, lateral and sunrise view of the left knee. FINDINGS: Joint space narrowing involving mostly the lateral compartment with sclerosis along the articular surface medial tibial plateau and femoral condyles. No acute cortical disruption or malalignment. No lytic or blastic lesions. No suprapatellar bursa joint effusion. XR/XR knee LT 3V IMPRESSION: Bicompartmental osteoarthrosis involving mostly the lateral compartment. Worsened since prior exam. Electronically signed by: Pawel Gao MD 06/24/2025 11:05 AM EDT
== END 2025-06-24 09:00 | disposition home or self-care (01) ==
LOC: HO.HOSX 08:59
PROVIDERS: Visit Provider Orthopaedic Surgery
DX: M17.12 Unilateral primary osteoarthritis, left knee (principal); M25.562 Pain in left knee; Z79.899 Other long term (current) drug therapy
CPT/HCPCS: 73562; 99202

== ENCOUNTER 2025-06-24 10:34 | Outpatient (AMB) | payer MEDICARE, MEDICAID, SELFPAY ==
--- NOTE | 2025-06-24 10:42 | A.OFFVIS_ITS ---
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 She describes her pain as sharp and severe in nature. She was seen at an urgent care clinic 2 months ago because of the severity of her pain. Her pain has gotten worse over the last year in spite of continued non operative treatments. The patient is concerned about having a cortisone injection because she is having breast surgery next month and she is worried about effects on her immune system and ability to heal. She has been to formal physical therapy which aggravated her pain. She has failed the last 3 months of conservative treatment which has included physical therapy, a home exercise program, Tylenol and anti-inflammatory medicines. At this point the patient's left knee pain is interfering with her activities of daily living and her ability to sleep well through the night. She wishes to hold off on knee surgery if at all possible. Allergies amoxicillin (AMOXICILLIN) Allergy (Unknown, Verified 06/24/25 10:46) ITCHING,RASH, rash, itching Medication List - Last Reconciled 06/24/25 by Steve Yanez MD anastrozole 1 mg PO DAILY lactobacillus combination no.4 (Probiotic) 3,000 mmu cells PO DAILY levothyroxine 88 mcg PO DAILY lisinopril 20 mg PO DAILY omeprazole 20 mg PO DAILY simvastatin 20 mg PO DAILY [facility] Medical History DCIS (ductal carcinoma in situ) Osteopenia Bronchitis GERD (gastroesophageal reflux disease) Thyroid cancer Hypercholesterolemia Hypertension PVC (premature ventricular contraction) Surgical History History of mastectomy H/O total thyroidectomy History of removal of cyst History of lumpectomy History of tonsillectomy History of cholecystectomy Family History Maternal Grandfather CVD (cardiovascular disease) Father Cancer Mother Cancer Parkinson disease Maternal Grandmother Gallbladder cancer Social History Housing: House Alcohol intake: current Alcohol intake frequency: holidays/special occasions only Patient Tobacco Use Status: Former Tobacco user Years Smoked: 15+ e-Cigarette/Vaping Use: Never Used service: No Current occupational status: retired Cognitive needs: No Hearing needs: No Vision needs: Yes (rx glasses) Female Reproductive History Menstrual Age of Menarche: 13 Physical Exam Vital Signs: BMI result Body Mass Index 25.8 Const Other: Well-nourished well-developed very friendly female awake alert and oriented x3 in no acute distress Extrem Other: Bilateral lower extremity examination shows good capillary refill, no skin lesions noted, normal sensation light touch Left knee examination shows a minimal effusion, palpable crepitus with range of motion, pain with range of motion, no instability Results Reviewed Results Reviewed: X-rays of the patient's left knee taken today show moderate joint space narrowing most significant in the medial compartment, subchondral sclerosis, no acute bony abnormalities Assessment & Plan Assessment & Plan (1) Osteoarthritis of left knee: Code(s): M17.12 - Unilateral primary osteoarthritis, left knee Category: Medical Plan Ms. Becerril presents with progressively worsening left knee pain due to osteoarthritis. I had a lengthy discussion with the patient regarding the treatment options. She wishes to hold off on surgery if at all possible. I agree with this plan. She is concerned about having a cortisone injection because of the effects on her immune system. Thus, I will see if her insurance company will cover a viscosupplementation injection, such as Durolane, for her left knee. I will see her back once the injection is available. Feel free to call me at any time should questions regarding her orthopedic management arise. Thank you very much for asking me to see this very friendly patient. I spent 22 minutes in reviewing the patient's records and imaging studies, seeing the patient and documenting in the medical record. Orders: Orders XR knee LT 3V Today M25.562 - Pain in left knee Coding Level of Care Code New Pt Level 3 (85373) Complex EM visit Add On G2211 Diagnoses Osteoarthritis of left knee M17.12
[2025-06-24 10:47] VITALS: BMI 25.8
== END 2025-06-24 11:14 | disposition home or self-care (01) ==
LOC: HO.HOS 10:35
PROVIDERS: PCP Internal Medicine; Visit Provider Orthopaedic Surgery
DX: M17.12 Unilateral primary osteoarthritis, left knee (principal)
CPT/HCPCS: 99203; G2211

== ENCOUNTER → 2025-06-24 10:37 | Outpatient (BNV) | payer MEDICARE, MEDICAID, SELFPAY | PROVIDERS: Visit Provider Radiology Diagnostic Radiology | DX: M17.12 Unilateral primary osteoarthritis, left knee (principal) | CPT/HCPCS: 73562 ==

== ENCOUNTER 2025-08-01 09:56 | Outpatient (AMB) | payer MEDICARE, MEDICAID, SELFPAY ==
[2025-08-01 10:09] VITALS: BP 122/76; PULSE 68; RESP 18; TEMP 36.8; O2SAT 97; BMI 25.8
--- NOTE | 2025-08-01 10:09 | AM.OFFWIN_ITS ---
Intake Vital Signs 08/01/25 10:09 Height 5 ft 7 in Weight 165 lb BMI 25.8 BP 122/76 Blood Pressure Location Lt brachial Position Sitting Respiration 18 Pulse 68 Pulse Source Pulse Oximeter Temp 98.3 F Temp Source Oral Pulse Oximetry (%) 97 Oxygen Delivery Method Room Air Intake Visit Reasons: ep swelling left side of neck Intake Note: Pt is here today for a walk in visit. Pt c/o swelling on the L side of her neck that she noticed last night. Patient Tobacco Use Status: Former Tobacco user Allergies amoxicillin (AMOXICILLIN) Allergy (Unknown, Verified 08/01/25 10:13) ITCHING,RASH, rash, itching HPI HPI Comments History of Present Illness Details 75 y/o Female patient who presents to [facility] walk in clinic with c/o Lump left side of Neck. Reports that she was looking on the Mirror last night and believes she felt a small lump or swelling left neck. H/o Total Thyroidectomy due to cancer many years ago - she still does have Parathyroid glands. Denies Sore-throat, neck pain, fevers or chills. Pt does not have tonsils. COUNT INCLUDES THE [facility] Medical History (Updated 08/01/25 @ 10:59 by Juhi Manuel NP) Lump in neck DCIS (ductal carcinoma in situ) Osteopenia Bronchitis GERD (gastroesophageal reflux disease) Thyroid cancer Hypercholesterolemia Hypertension PVC (premature ventricular contraction) Surgical History History of mastectomy H/O total thyroidectomy History of removal of cyst History of lumpectomy History of tonsillectomy History of cholecystectomy Family History Maternal Grandfather CVD (cardiovascular disease) Father Cancer Mother Cancer Parkinson disease Maternal Grandmother Gallbladder cancer Social History Housing: House Alcohol intake: current Alcohol intake frequency: holidays/special occasions only Patient Tobacco Use Status: Former Tobacco user Years Smoked: 15+ e-Cigarette/Vaping Use: Never Used service: No Current occupational status: retired Cognitive needs: No Hearing needs: No Vision needs: Yes (rx glasses) Female Reproductive History Menstrual Age of Menarche: 13 Physical Exam Vital Signs: Last Vital Signs Temp 98.3 F 08/01/25 10:09 Pulse 68 08/01/25 10:09 Resp 18 08/01/25 10:09 BP 122/76 08/01/25 10:09 Pulse Ox 97 08/01/25 10:09 Oxygen Delivery Method Room Air 08/01/25 10:09 BMI result Body Mass Index 25.8 Const General: no acute distress Nutritional Appearance: obese Orientation/consciousness: patient oriented x3 HEENT Head: Yes normocephalic Mouth: tongue normal Throat: Yes uvula midline and Yes tonsils absent Neck Lymphatic: lymphadenopathy (Submandibular B/L) Neuro General: patient oriented x3, gait normal and moves all extremities Psych Speech and movement: Normal speech and movement present Assessment & Plan Assessment & Plan (1) Lump in neck: Code(s): R22.1 - Localized swelling, mass and lump, neck Plan: Exam is consistent with lymphadenopathy. Advised Pt to continue monitoring for 2 weeks, if not better will order U/S as requested. Pt asking for U/S neck due to her H/o Coding Level of Care Code Est Pt Level 4 (47484) Diagnoses Lump in neck R22.1 Time Spent (min) 20
== END 2025-08-01 11:04 | disposition home or self-care (01) ==
PROVIDERS: Visit Provider Nurse Practitioner Family
DX: R22.1 Localized swelling, mass and lump, neck (principal)

== ENCOUNTER → 2025-08-01 09:56 | Outpatient (BNVA) | payer MEDICARE, MEDICAID, SELFPAY | PROVIDERS: Visit Provider Nurse Practitioner Family | DX: R22.1 Localized swelling, mass and lump, neck (principal) | CPT/HCPCS: 99212 ==

== ENCOUNTER 2025-08-29 09:21 | Outpatient (AMB) | payer MEDICARE, MEDICAID, SELFPAY ==
--- NOTE | 2025-08-29 09:26 | MHC.OFFVIS ---
Vital Signs 08/29/25 09:34 Height 5 ft 7 in Weight 165 lb BMI 25.8 Intake Visit Reasons: Inj- Left Knee Gel-One Inj Intake Note: Kandis is a 75 year old female who presents with complaints of left knee pain. She describes her pain as sharp in nature. She has failed the last 3 months of conservative treatment which has included Tylenol, anti-inflammatory medicines and a home exercise program. She has had cortisone injections in the past which gave her minimal relief. She has not had a viscosupplementation injection. She wishes to hold off on surgery if at all possible. Allergies amoxicillin (AMOXICILLIN) Allergy (Unknown, Verified 08/29/25 09:33) ITCHING,RASH, rash, itching latex Allergy (Unknown, Verified 08/29/25 09:33) Rash Medication List - Last Reconciled 08/29/25 by Steve Yanez MD anastrozole 1 mg PO DAILY lactobacillus combination no.4 (Probiotic) 3,000 mmu cells PO DAILY levothyroxine 88 mcg PO DAILY lisinopril 20 mg PO DAILY omeprazole 20 mg PO DAILY simvastatin 20 mg PO DAILY [facility] Medical History Lump in neck DCIS (ductal carcinoma in situ) Osteopenia Bronchitis GERD (gastroesophageal reflux disease) Thyroid cancer Hypercholesterolemia Hypertension PVC (premature ventricular contraction) Surgical History History of mastectomy H/O total thyroidectomy History of removal of cyst History of lumpectomy History of tonsillectomy History of cholecystectomy Family History Maternal Grandfather CVD (cardiovascular disease) Father Cancer Mother Cancer Parkinson disease Maternal Grandmother Gallbladder cancer Social History Housing: House Alcohol intake: current Alcohol intake frequency: holidays/special occasions only Patient Tobacco Use Status: Former Tobacco user Years Smoked: 15+ e-Cigarette/Vaping Use: Never Used service: No Current occupational status: retired Cognitive needs: No Hearing needs: No Vision needs: Yes (rx glasses) Female Reproductive History Menstrual Age of Menarche: 13 Physical Exam Vital Signs: BMI result Body Mass Index 25.8 Const Other: Well-nourished well-developed very friendly female awake alert and oriented x3 in no acute distress Extrem Other: Left knee examination shows a minimal effusion, palpable crepitus with range of motion, pain with range of motion, no instability Office Procedures AMB Joint Injection/Aspiration Joint Injection/Aspiration Primary Site: left knee Prep: site was prepped using aseptic technique Injected: with 3 mL of (Gel One viscosupplementation) and 1% plain lidocaine Procedure: The patient tolerated the procedure well Coding - Large joint Procedure code (CPT) selection complete Results Reviewed Results Reviewed: X-rays of the patient's left knee taken previously show joint space narrowing, subchondral sclerosis, no acute bony abnormalities Assessment & Plan Assessment & Plan (1) Osteoarthritis of left knee: Code(s): M17.12 - Unilateral primary osteoarthritis, left knee Category: Medical Plan Ms. Becerril presents with progressively worsening left knee pain due to osteoarthritis. The risks and benefits of a Gel One viscosupplementation injection were discussed at length with the patient. The patient wished to proceed. She tolerated the injection well. She will continue with her home exercise program. She will contact me prior to her follow-up appointment in 3 months should any questions or concerns arise. Feel free to call me at any time should questions regarding her orthopedic management arise. I spent 20 minutes in reviewing the patient's records and imaging studies, seeing the patient and documenting in the medical record. Orders: Orders AMB Joint Injection/Aspiration Today M17.12 - Unilateral primary osteoarthritis, left knee Coding Level of Care Code Est Pt Level 3 (18903) Complex EM visit Add On G2211 Diagnoses Osteoarthritis of left knee M17.12 CPT Codes Coding - Large joint: 10988 - Large joint ([id number])
[2025-08-29 09:34] VITALS: BMI 25.8
== END 2025-08-29 10:00 | disposition home or self-care (01) ==
LOC: HO.HOS 09:21
PROVIDERS: Visit Provider Orthopaedic Surgery
DX: M17.12 Unilateral primary osteoarthritis, left knee (principal)
CPT/HCPCS: 20610; 99213

== ENCOUNTER → 2025-08-29 09:21 | Outpatient (BNVA) | payer MEDICARE, MEDICAID, SELFPAY | PROVIDERS: Visit Provider Orthopaedic Surgery | DX: M17.12 Unilateral primary osteoarthritis, left knee (principal) | CPT/HCPCS: 20610; 99212; J2003; J7326 ==

== ENCOUNTER 2025-09-12 10:07 | Outpatient (REF) | payer MEDICARE, MEDICAID, SELFPAY | END 2025-09-12 10:08 | disposition home or self-care (01) | LOC: HO.HMGCLDS 10:07 | PROVIDERS: PCP Student in an Organized Health Care Education/Training Program; Visit Provider Internal Medicine | DX: E03.9 Hypothyroidism, unspecified (principal) | CPT/HCPCS: 36415; 84443 ==

== ENCOUNTER 2025-09-23 12:32 | Outpatient (AMB) | payer MEDICARE, MEDICAID, SELFPAY ==
--- OUTSIDE RECORDS SUMMARY | 2025-09-20 23:59 | XMS_ITS | Continuity of Care Document ---
Author Organization [facility] Lashonda mary Address [address] [place] [address] [address] [place] [address]- Care Team Providers Care Hotel Maid Name Role Phone Case Krishnan MD Primary Care Physician [phone] [id number] Date[facility]s): [facility]11[facility] - 09/20/25 [facility] [address] [place] [address] [place] [address]- Attending Physician: Donn Huston MD Encounter Type: Pre Office Visit Allergies, Adverse Reactions, Alerts Substance Criticality Severity Reaction Reaction Severity Status amoxicillin Unable to assess criticality Persistent Moderate rash Active Other Environmental Allergy Unable to assess criticality Persistent Moderate pollen,trees Active Dust Unable to assess criticality Persistent Moderate Active Latex rash Active Medications anastrozole 1 mg oral tablet 1 tablet, By Mouth, Daily, # 90 tablet, 3 Refills, Maintenance, 02/14/25 9:52:00 AM EDT, [id number], 166, cm, 02/14/25 9:26:00 EDT, Height, 86.6, kg, 02/14/25 9:26:00 EDT, Dry Weight Start Date: 02/14/25 Status: Ordered Medication Dispense Status: Completed Quantity: 90.0 Unit: tablet Total Allowed Fills: 4 Fills Dispensed: 0 Calcium 500+D By Mouth, 3 times a day, 0 Refills, Maintenance, 07/08/21 2:58:00 PM EDT, Partial fill upon patient request if the prescription is for a schedule II opioid drug. Start Date: 07/08/21 Status: Ordered Medication Dispense Status: Completed Total Allowed Fills: 1 Fills Dispensed: 0 levothyroxine 0.088 mg oral tablet 1 tablet = 88 mcg, By Mouth, Daily, 90 tablet, 0 Refill(s), 0 Refills, 05/15/25 10:10:00 AM EDT, Partial fill upon patient request if the prescription is for a schedule II opioid drug. Start Date: 05/15/25 Status: Ordered Medication Dispense Status: Completed Total Allowed Fills: 1 Fills Dispensed: 0 lisinopril 20 mg oral tablet 20 mg, 1, tablet, By Mouth, Daily, # 30 tablet, Refills 0, Maintenance, 05/29/21 3:06:00 PM EDT, Partial fill upon patient request if the prescription is for a schedule II opioid drug. Start Date: 05/29/21 Status: Ordered Medication Dispense Status: Completed Quantity: 30.0 Unit: tablet Total Allowed Fills: 1 Fills Dispensed: 0 Mastectomy Bra See Instructions, # 3 each, Refills 1, Tot. Refills 1, Maintenance, right breast cancer s/p bilateral mastectomy, 02/03/23 9:24:00 AM EST, Supply Start Date: 02/03/23 Status: Ordered Medication Dispense Status: Completed Quantity: 3.0 Unit: each Total Allowed Fills: 2 Fills Dispensed: 0 Indications: Malignant neoplasm of unspecified site of right female breast; Acquired absence of bilateral breasts and nipples; Mastectomy Prosthesis See Instructions, # 1 each, Maintenance, right breast cancer s/p bilateral mastectomy, 02/03/23 9:25:00 AM EST, Supply Start Date: 02/03/23 Status: Ordered Medication Dispense Status: Completed Quantity: 1.0 Unit: each Total Allowed Fills: 1 Fills Dispensed: 0 Indications: Malignant neoplasm of unspecified site of right female breast; Acquired absence of bilateral breasts and nipples; omeprazole 20 mg oral delayed release tablet 1 tablet = 20 mg, By Mouth, Daily at bedtime, # 30 tablet, 0 Refills, Maintenance, 05/29/21 3:05:00 PM EDT, CR Tablet, Partial fill upon patient request if the prescription is for a schedule II opioid drug. Start Date: 05/29/21 Status: Ordered Medication Dispense Status: Completed Quantity: 30.0 Unit: tablet Total Allowed Fills: 1 Fills Dispensed: 0 simvastatin 20 mg oral tablet 20 mg, 1, tablet, By Mouth, Daily at bedtime, # 30 tablet, Refills 0, Maintenance, 05/29/21 3:05:00 PM EDT, Partial fill upon patient request if the prescription is for a schedule II opioid drug. Start Date: 05/29/21 Status: Ordered Medication Dispense Status: Completed Quantity: 30.0 Unit: tablet Total Allowed Fills: 1 Fills Dispensed: 0 Problem List Condition Confirmation Course Effective Dates Status Health St at[facility] Informant Malignant neoplasm of upper-outer quadrant of right breast in female, estrogen receptor positive Confirmed Active Social History Social History Type Response Smoking Status Former smoker, quit more than 30 days ago entered on: 05/29/21 Sex Sex Representation Female (finding) Implantable Device List Procedure Provider Procedure Date Device Type Site Mastectomy Bilateral With Union Node Gorge Hare III, MD 07/20/21 Unknown Breast Left Device Identifier Serial Number Lot or Batch Number Manufacturing Date Expiration Date Distinct Identification Code MRI Safety Implantable Status Assigning Authority Unknown [id number] Unknown 04/19/25 Unknown Unknown Active Unknown Procedure Provider Procedure Date Device Type Site Reconstruction Breast with Insertion Gorge Awan III, MD 07/20/21 Unknown Breast Left Device Identifier Serial Number Lot or Batch Number Manufacturing Date Expiration Date Distinct Identification Code MRI Safety Implantable Status Assigning Authority Unknown [id number] Unknown 06/26/25 Unknown Unknown Active Unknown Procedure Provider Procedure Date Device Type Site Mastectomy Bilateral With Union Node Gorge Hare III, MD 07/20/21 Unknown Breast Right Device Identifier Serial Number Lot or Batch Number Manufacturing Date Expiration Date Distinct Identification Code MRI Safety Implantable Status Assigning Authority Unknown [id number] Unknown 04/19/25 Unknown Unknown Active Unknown Procedure Provider Procedure Date Device Type Site Reconstruction Breast with Insertion Gorge Awan III, MD 07/20/21 Unknown Breast Right Device Identifier Serial Number Lot or Batch Number Manufacturing Date Expiration Date Distinct Identification Code MRI Safety Implantable Status Assigning Authority Unknown [id number] Unknown 06/27/25 Unknown Unknown Active Unknown Patient Care team information Care Team Personnel Name: Antonia Sandhu RN Position: [facility] Onco RN Member Role: Primary Care Nurse Name: Case Krishnan MD Position: [facility] Physician - Hospital Medicine Member Role: PCP Address: [address] [place] [address] Telecom: Care Team Related Persons Name: DIANE LOBO Insurance Providers Guarantor name: CARLOS LOBO [facility] Plan Information #: 1 Payer: [employer] H[employer] Payer Identifier: LIS[place]ET Member Number: [id number] Group Number: [id number] Subscriber Identifier: [id number] Relationship to Subscriber: self Coverage Type: Medicare HMO Coverage Verification Date: NA Telecom: NA Address: Health Plan Information #: 2 Payer: [facility] Payer Identifier: LISBET Member Number: [id number] Group Number: [id number] Subscriber Identifier: LISBET Relationship to Subscriber: self Coverage Type: MEDICAID Coverage Verification Date: NA Telecom: NA Address: NA
[2025-09-23 12:50] VITALS: BP 134/82; PULSE 52; TEMP 36.6; O2SAT 99; BMI 29.9
--- NOTE | 2025-09-23 12:50 | A.OFFPC_ITS ---
Vital Signs 09/23/25 12:50 Height 5 ft 7 in Weight 191 lb BMI 29.9 BP 134/82 Blood Pressure Location Rt brachial Position Sitting Pulse 52 Pulse Source Pulse Oximeter Temp 97.9 F Temp Source Temporal Artery Scan Pulse Oximetry (%) 99 Oxygen Delivery Method Room Air Intake Visit Reasons: follow up [place] pt. 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 Accompanied by: Self / Same As Patient Allergies amoxicillin (AMOXICILLIN) Allergy (Unknown, Verified 09/23/25 12:51) ITCHING,RASH, rash, itching latex Allergy (Unknown, Verified 09/23/25 12:51) Rash Tobacco use date assessed: 09/23/25 Fall risk assessment: No Falls in past year Last assessed Fall Risk: 09/23/25 Dental Screening Dental Screen Date: 09/23/25 Did you have a dental visit in the last 12 months?: Yes Did you have a dental problem in the last 6 months where you did not have access to dental care?: No HPI HPI Comments History of Present Illness Details The patient is a 75-year-old female presenting for an initial visit for chronic disease management. She recently visited a walk-in clinic for a neck lump, which has since resolved on its own without intervention; an ordered ultrasound was not performed. The patient attributes the lump to a strong peppermint-based rodent repellent she was using, as the lump resolved after she discontinued its use. The patient has a history of hypothyroidism and was previously taking levothyroxine 125 mcg for many years, which was causing symptoms of being overtreated, including heart fluttering and feeling jittery. Her dose was recently lowered to 88 mcg, and a lab test 10 days ago showed a TSH level of 1.03, indicating the dose is now appropriate. Her other chronic conditions include hypertension, managed with lisinopril 20 mg, and hyperlipidemia, managed with simvastatin 20 mg. A lipid panel from February of this year was noted as good, with a total cholesterol of 155 and LDL of 85. She also takes omeprazole for acid reflux. The patient has a history of breast cancer and underwent a bilateral mastectomy by choice due to the presence of atypical cells. She is currently taking anastrozole, which she is scheduled to complete next year. This medication causes side effects of hot flashes and sweating. When she first started the medication, she experienced bleeding and diarrhea, which have since resolved. She reports her legs have a history of swelling, but it improves with elevation at night. In terms of health maintenance, the patient is up-to-date with her flu and COVID-19 vaccinations and plans to get the newer COVID shot in November or December. She no longer requires mammograms due to her mastectomy. Medical History: - Hypertension - Hyperlipidemia - Hypothyroidism - History of breast cancer with atypical cells - Acid reflux - Neck lump, resolved - Lower extremity edema Surgical History: - Bilateral mastectomy Medications: - Lisinopril 20 mg for hypertension - Simvastatin 20 mg for hyperlipidemia - Levothyroxine 88 mcg for hypothyroidis m - Anastrozole for breast cancer - Omeprazole for acid reflux - Saccharomyces boulardii as needed for diarrhea Diagnostic Results: - Vitals: Blood pressure was 134/x mmHg. - Labs: A lipid panel from February showed a total cholesterol of 155 mg/dL and LDL of 85 mg/dL. - Labs: Recent thyroid labs showed a TSH level of 1.03 mIU/L. Social History: - Diet: Patient reports eating healthy. [facility] Medical History Lump in neck DCIS (ductal carcinoma in situ) Osteopenia Bronchitis GERD (gastroesophageal reflux disease) Thyroid cancer Hypercholesterolemia Hypertension PVC (premature ventricular contraction) Surgical History History of mastectomy H/O total thyroidectomy History of removal of cyst History of lumpectomy History of tonsillectomy History of cholecystectomy Family History (Updated 09/23/25 @ 12:56 by Cydney Torres MA) Maternal Grandfather CVD (cardiovascular disease) Father Cancer Mother Cancer Parkinson disease Maternal Grandmother Gallbladder cancer Social History Housing: House Alcohol intake: current Alcohol intake frequency: holidays/special occasions only Patient Tobacco Use Status: Former Tobacco user Years Smoked: 15+ e-Cigarette/Vaping Use: Never Used service: No Current occupational status: retired Cognitive needs: No Hearing needs: No Vision needs: Yes (rx glasses) Female Reproductive History Menstrual Age of Menarche: 13 Questionnaire PHQ-9 Over the last 2 weeks, how often have you been bothered by any of the following problems? 1. Little interest or pleasure in doing things: not at all 2. Feeling down, depressed, or hopeless: not at all 3. Trouble falling or staying asleep, or sleeping too much: not at all 4. Feeling tired or having little energy: not at all 5. Poor appetite or overeating: not at all 6. Feeling bad about yourself - or that you are a failure or have let yourself or your family down: not at all 7. Trouble concentrating on things, such as reading the newspaper or watching television: not at all 8. Moving or speaking so slowly that other people could have noticed. Or the opposite - being so fidgety or restless that you have been moving around a lot more than usual: not at all 9. Thoughts that you would be better off or of hurting yourself in some way: not at all Total score: 0 Source: Developed by Drs. Albin Sandra, Chelsea Downey, Mathew Gao and colleagues, with an educational paige from [employer]. Thrive Questionnaire Date Thrive assessed: 09/23/25 I am a: Patient Within the past 12 months, did the food you bought not last and you didn't have the money to get more?: Never true Within the past 12 months, did you worry whether your food would run out before you got money to buy more?: Never true Do you have trouble paying for medicines?: No Do you have trouble getting transportation to medical appointments?: No Do you have trouble paying your heating and electricity bill?: No Do you have trouble with day-to-day activities such as bathing, preparing meals, shopping, managing finances, etc.?: No Are you currently unemployed and looking for a job?: No Are you interested in more education?: No THRIVE Score: 0 AUDIT C Alcohol Use Questionnaire (AUDIT-C) 1. How often do you have a drink containing alcohol?: Never 3. How often do you have six or more drinks on one occasion?: Never Total Score: 0 PATTI-7 AMB Questionnaire PATTI-7 Date PATTI - 7 assessed: 09/23/25 Feeling nervous, anxious, or on edge: 0 = Not at all Not being able to stop or control worryin = Not at all Worrying too much about different things: 0 = Not at all Trouble relaxin = Not at all Being so restless that it is hard to sit still: 0 = Not at all Becoming easily annoyed or irritable: 0 = Not at all Feeling afraid as if something awful might happen: 0 = Not at all Total PATTI-7 score (0-4 normal; 5-9 mild; 10-14 moderate; 15-21 severe): 0 Source: Developed by Drs. Albin Sandra, Chelsea Downey, Mathew Gao and colleagues, with an educational paige from [employer]. Review of Systems Narrative - General: Reports feeling well. - HEENT: Reports a history of a neck lump that has resolved. - Cardiovascular: Denies chest pain. - Respiratory: Denies shortness of breath. - Gastrointestinal: Reports normal bowel and bladder function. - Neurological: Denies headaches and vision changes. - Endocrine: Reports hot flashes and sweating, attributed to anastrozole. - Extremities: Reports bilateral lower extremity swelling that improves with elevation. All systems reviewed & are unremarkable except as reviewed in HPI and above Physical exam (Primary Care) Vital Signs: Last Vital Signs Temp 97.9 F 09/23/25 12:50 Pulse 52 09/23/25 12:50 BP 134/82 09/23/25 12:50 Pulse Ox 99 09/23/25 12:50 Oxygen Delivery Method Room Air 09/23/25 12:50 BMI result Body Mass Index 29.9 Tobacco/Smoking Status: Tobacco use Status Tobacco use date assessed 09/23/25 09/23/25 12:52 Patient Tobacco Use Status Former Tobacco user 09/23/25 12:52 e-Cigarette/Vaping Use Never Used 09/23/25 12:52 PHQ-9: PHQ-9 Score PHQ-9: Total score 0 09/23/25 13:01 Thrive Assessment: Date of Thrive Assessment Date Thrive assessed 09/23/25 09/23/25 12:52 Narrative General: Alert and oriented, Well nourished, No acute distress. Eye: Pupils are equal, round and reactive to light, Intact accommodation, Extraocular movements are intact, Normal conjunctiva, Vision unchanged. HENT: Normocephalic, Atraumatic, Tympanic membranes are clear, Normal hearing, Oral mucosa is moist, No pharyngeal erythema, Ear canals patent. Respiratory: Lungs CTA bilaterally, No wheeze, Respirations are non-labored. Cardiovascular: Regular rate, Regular rhythm, S1 auscultated, S2 auscultated, No murmur, Good pulses equal in all extremities, Normal peripheral perfusion, No edema. Gastrointestinal: Soft, Non-tender, Non-distended, Normal bowel sounds, No organomegaly. Musculoskeletal: Normal range of motion, Normal strength, No tenderness, No swelling, No deformity, Normal gait. Integumentary: Warm, Dry, [place], Intact. Neurologic: Alert, Oriented, Normal sensory, Normal motor function, No focal defects, Cranial Nerves II-XII are grossly intact, Normal deep tendon reflexes. Psychiatric: Cooperative, Appropriate mood & affect, Normal judgment. 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 - Plan is to continue current medication without changes. Code(s): I10 - Essential (primary) hypertension Category: Medical Qualifiers: Hypertension type: primary hypertension Qualified Code(s): I10 - Essential (primary) hypertension (3) Hypothyroid: Comment: - Condition is well-managed following a dose reduction of levothyroxine from 125 mcg to 88 mcg. - Recent TSH level of 1.03 is within target range, and symptoms of hyperthyroidism such as heart fluttering have resolved. - Plan is to continue levothyroxine 88 mcg and recheck thyroid levels with labs in six months. Code(s): E03.9 - Hypothyroidism, unspecified Category: Medical Qualifiers: Hypothyroidism type: unspecified Qualified Code(s): E03.9 - Hypothyroidism, unspecified (4) Hypercholesterolemia: Comment: - Well-controlled on simvastatin 20 mg. - A lipid panel from February was favorable. - Plan is to continue current medication and recheck cholesterol levels with labs in six months. 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 - She experiences hot flashes and sweating as side effects. Code(s): D05.11 - Intraductal carcinoma in situ of right breast Category: Medical (6) GERD (gastroesophageal reflux disease): Comment: - Continue omeprazole Code(s): K21.9 - Gastro-esophageal reflux disease without esophagitis Category: Medical Qualifiers: Esophagitis presence: esophagitis presence not specified Qualified Code(s): K21.9 - Gastro-esophageal reflux disease without esophagitis Plan: Health Maintenance: - Vaccinations: Patient is up-to-date on her flu shot, received last week, and her COVID-19 shot. - COVID-19 Booster: She is scheduled to receive the newer COVID-19 shot in November or December. - Cancer Screening: No longer requires mammograms due to bilateral mastectomy. - Follow-up: Scheduled for a follow-up visit in 6 months, which will serve as her annual physical. - Laboratory Monitoring: Orders will be placed for labs to be drawn in 6 months, prior to her next visit, to check cholesterol, blood counts, electrolytes, thyroid function, and blood sugar. Patient was informed and verbally consented to the use of an ambient scribe for clinic note documentation during this visit. Plan I discussed with the patient that her overall health is very good and her chronic conditions, including hypertension, hyperlipidemia, and hypothyroidism, are well-managed on her current medications. I explained that the recent adjustment of her levothyroxine dose to 88 mcg has successfully normalized her thyroid levels, as evidenced by her TSH of 1.03 and resolution of symptoms like heart fluttering. We will continue all her current medications without changes. I recommended a follow-up appointment in six months for her annual physical, explaining that this interval would provide enough time for her body to fully adjust to the new thyroid medication dose before we re-evaluate her labs. I have ordered labs to be completed just before that visit, which will include a lipid panel, thyroid function tests, and other routine checks; I informed her that fasting is not necessary for the cholesterol test. Regarding her leg swelling, I advised the use of leg elevation and compression stockings to prevent future complications like ulcers or infections. Orders: Orders Complete Blood Count Auto Diff Today Z00.00 - Encounter for general adult medical examination without abnormal findings Comprehensive Met. Panel Today Z00.00 - Encounter for general adult medical examination without abnormal findings Hemoglobin A1c Today Z00.00 - Encounter for general adult medical examination without abnormal findings Lipid Panel Today Z00.00 - Encounter for general adult medical examination without abnormal findings TSH reflex Free T4 Today Z00.00 - Encounter for general adult medical examination without abnormal findings Vitamin D 25-OH Total Today Z00.00 - Encounter for general adult medical examination without abnormal findings Patient Instructions: - Continue taking all your current medications as prescribed, including lisinopril, simvastatin, levothyroxine 88 mcg, anastrozole, and omeprazole. - For the swelling in your legs, try to keep them elevated when you are sitting or resting. - It is recommended that you wear compression stockings to help with the leg swelling and prevent future problems like sores or infections. - An order for blood tests has been placed. - Please go to the lab to have your blood drawn a few days before your next appointment in six months. - Your next appointment will be in six months for your annual physical. - If you have any questions or concerns before then, please contact the clinic.
== END 2025-09-23 13:14 | disposition home or self-care (01) ==
LOC: HO.HMCHD 12:33
PROVIDERS: Visit Provider Student in an Organized Health Care Education/Training Program
DX: R22.1 Localized swelling, mass and lump, neck (principal); I10 Essential (primary) hypertension; E03.9 Hypothyroidism, unspecified; E78.00 Pure hypercholesterolemia, unspecified; D05.11 Intraductal carcinoma in situ of right breast; K21.9 Gastro-esophageal reflux disease without esophagitis

== ENCOUNTER → 2025-09-23 12:32 | Outpatient (BNVA) | payer MEDICARE, MEDICAID, SELFPAY | PROVIDERS: Visit Provider Student in an Organized Health Care Education/Training Program | DX: R22.1 Localized swelling, mass and lump, neck (principal); I10 Essential (primary) hypertension; E03.9 Hypothyroidism, unspecified; E78.00 Pure hypercholesterolemia, unspecified; D05.11 Intraductal carcinoma in situ of right breast; K21.9 Gastro-esophageal reflux disease without esophagitis; Z79.811 Long term (current) use of aromatase inhibitors; Z79.899 Other long term (current) drug therapy; Z13.30 Encounter for screening examination for mental health and behavioral disorders, unspecified; Z13.39 Encounter for screening examination for other mental health and behavioral disorders | CPT/HCPCS: 96127; 99212 ==